=== PATIENT | female | born 1960 | race Caucasian/White ===

== ENCOUNTER 2017-09-07 19:03 | Emergency (ER) | payer MEDICARE ==
[~2017-09-07] VITALS: Ht 160 cm; Wt 54.0 kg
[2017-09-07] MEDS ORDERED: SODIUM CHLORIDE 0.9% 1000ML 1,000 ML IV STA (19:47)
--- NOTE | 2017-09-07 20:48 | Diagnostic Imaging Report ---
EXAMINATION: CHEST SINGLE (PORTABLE) INDICATION: Dizziness. Low blood pressure. COMPARISON: None FINDINGS: TUBES and LINES: None. Battery pack projected on the left hemithorax with lead extending into the left hemithorax, with distal portion not included. LUNGS: Lungs are well inflated. Lungs are clear. There is no evidence of pneumonia or pulmonary edema. PLEURA: No pleural effusion or pneumothorax. HEART AND MEDIASTINUM: The cardiomediastinal silhouette is unremarkable. BONES AND SOFT TISSUES: No acute osseous lesion. Soft tissues are unremarkable. UPPER ABDOMEN: No free air under the diaphragm. IMPRESSION: No acute thoracic abnormality. Signed by: Dr. Paco Munoz M.D. on 09/07/2017 8:44 PM
[2017-09-07 22:15] LABS: BASOPHILS % 0.6 % (0.0-1.0); EOSINOPHILS # (AUTO) 0.1 (0.0-0.4); EOSINOPHILS % 1.1 % (0.0-6.0); HEMATOCRIT 34.5 % (34.2-44.1); LYMPHOCYTES # (AUTO) 1.3 (1.0-3.2); LYMPHOCYTES % 25.1 % (18.0-39.1); MEAN CORPUSCULAR HEMOGLOBIN 30.2 pg (28-32); MEAN CORPUSCULAR HGB CONC 31.9 g/dL (31-35); MEAN CORPUSCULAR VOLUME 94.8 fL (81-99); MONOCYTES # (AUTO) 0.4 (0.2-0.8); MONOCYTES % 7.4 % (4.4-11.3); NEUTROPHILS # (AUTO) 3.4 (2.1-6.9); NEUTROPHILS % 65.6 % (38.7-80.0); PLATELET COUNT 301 x10e3/uL (140-360); RED BLOOD COUNT 3.64 x10e6/uL (3.6-5.1); RED CELL DISTRIBUTION WIDTH 13.2 % (11.7-14.4)
[2017-09-07 22:19] LABS: INR 1.03; PROTHROMBIN TIME 12.7 seconds (11.9-14.5)
[2017-09-07 22:21] LABS: PARTIAL THROMBOPLASTIN TIME 23.2 seconds (23.8-35.5)
[2017-09-07 22:27] LABS: ALANINE AMINOTRANSFERASE 10 IU/L (0-55); ALBUMIN/GLOBULIN RATIO 1.2 (0.8-2.0); ALKALINE PHOSPHATASE 92 IU/L (40-150); ANION GAP 12.5 mmol/L (8-16); BLOOD UREA NITROGEN 16 mg/dL (7-26); BUN/CREATININE RATIO 17 (6-25); CALCIUM 9.6 mg/dL (8.4-10.2); CARBON DIOXIDE 22 mmol/L (22-29); CHLORIDE 110 mmol/L (98-107); CREATINE KINASE 102 IU/L (29-168); CREATININE, SERUM 0.96 mg/dL (0.57-1.11); EST GLOMERULAR FILTRATION RATE 60 ML/MIN (60-); GLUCOSE 115 mg/dL (74-118); MAGNESIUM 1.7 MG/DL (1.3-2.1); POTASSIUM 3.5 mmol/L (3.5-5.1); SODIUM 141 mmol/L (136-145)
[2017-09-07 23:24] LABS: BILIRUBIN,URINE NEGATIVE (NEGATIVE); CLARITY,URINE CLEAR (CLEAR); COLOR,URINE YELLOW (YELLOW); KETONES,URINE NEGATIVE (NEGATIVE); LEUKOCYTE ESTERASE ,URINE 1+ (NEGATIVE); NITRITE,URINE NEGATIVE (NEGATIVE); PROTEIN,URINE DIPSTICK NEGATIVE (NEGATIVE); URINE UROBILINOGEN 0.2 mg/dL (0.2 - 1)
[2017-09-07 23:37] LABS: BACTERIA,URINE FEW /HPF; EPITHELIAL CELLS,URINE FEW /LPF; MUCUS,URINE MODERATE (RARE); RBC,URINE 0-5 /HPF (0-5)
[2017-09-08] MEDS ORDERED: CEFTRIAXONE SOD 1 GM VIAL IV ONE
[2017-09-08] MEDS ORDERED: SODIUM CHLORIDE 0.9% 1000ML 1,000 ML ONE
[2017-09-08 02:37] VITALS: BP 111/68
== END 2017-09-08 02:48 | disposition home or self-care (01) ==
LOC: ER 19:03
DX: R11.2 Nausea with vomiting, unspecified (principal); N39.0 Urinary tract infection, site not specified; N30.90 Cystitis, unspecified without hematuria
CPT/HCPCS: 36415; 71045; 80053; 81001; 82550; 82553; 83735; 84484; 85025; 85610; 85730; 99283; J0696; J7030

== ENCOUNTER 2018-11-09 09:18 | Emergency (ER) | payer MEDICARE ==
[~2018-11-09] VITALS: Ht 160 cm; Wt 54.0 kg
--- OUTSIDE RECORDS SUMMARY | 2018-11-09 09:21 | XMS REPORT | Continuity of Care Document ---
Author Author [facility] Address Unknown Phone Unavailable Care Team Providers Care Wreath Maker Name Role Phone Cardiola Unavailable Unavailable Problems No Data Provided for This Section Medications No Data Provided for This Section Allergies, Adverse Reactions, Alerts Substance Category Reaction Severity Reaction type Status Date Reported Comments Source Codeine Unknown Allergy to Substance Active 09/07/2017 [facility] Immunizations No Data Provided for This Section Results Order Name Results Value Reference Range Date Interpretation Comments Source Activated partial thromboplastin time (aPTT) in platelet poor plasma bycoagulation assay Activated partial thromboplastin time (aPTT) in platelet poor plasma bycoagulation assay 23.2 23.8 - 35.5 09/07/2017 [facility] Automated blood basophil count (count/volume) Automated blood basophil count (count/volume) 0.0 0.0 - 0.1 09/07/2017 [facility] Automated blood basophil count as percentage of total leukocytes Automated blood basophil count as percentage of total leukocytes 0.6 0.0 - 1.0 09/07/2017 [facility] Automated blood eosinophil count Automated blood eosinophil count 0.1 0.0 - 0.4 09/07/2017 [facility] Automated blood eosinophil count as percentage of total leukocytes Automated blood eosinophil count as percentage of total leukocytes 1.1 0.0 - 6.0 09/07/2017 [facility] Automated blood hematocrit (volume fraction) Automated blood hematocrit (volume fraction) 34.5 34.2 - 44.1 09/07/2017 [facility] Automated blood lymphocyte count as percentage ot total leukocytes Automated blood lymphocyte count as percentage ot total leukocytes 25.1 18.0 - 39.1 09/07/2017 [facility] Automated blood monocyte count as percentage of total leukocytes Automated blood monocyte count as percentage of total leukocytes 7.4 4.4 - 11.3 09/07/2017 [facility] Automated blood neutrophil count Automated blood neutrophil count 3.4 2.1 - 6.9 09/07/2017 [facility] Automated blood platelet count (count/volume) Automated blood platelet count (count/volume) 301 140 - 360 09/07/2017 [facility] Automated blood segmented neutrophil count as percentage of total leukocytes Automated blood segmented neutrophil count as percentage of total leukocytes 65.6 38.7 - 80.0 09/07/2017 [facility] Automated erythrocyte mean corpuscular hemoglobin (mass per erythrocyte) Automated erythrocyte mean corpuscular hemoglobin (mass per erythrocyte) 30.2 28 - 32 09/07/2017 [facility] Automated erythrocyte mean corpuscular hemoglobin concentration measurement (mass/volume) Automated erythrocyte mean corpuscular hemoglobin concentration measurement (mass/volume) 31.9 31 - 35 09/07/2017 [facility] Automated erythrocyte mean corpuscular volume Automated erythrocyte mean corpuscular volume 94.8 81 - 99 09/07/2017 [facility] Automated urine sediment leukocyte count by microscopy (number/high power field) Automated urine sediment leukocyte count by microscopy (number/high power field) <20 0 - 5 09/07/2017 [facility] Bacteria detection in urine sediment by light microscopy Bacteria detection in urine sediment by light microscopy FEW NONE 09/07/2017 [facility] Blood erythrocytes automated count (number/volume) Blood erythrocytes automated count (number/volume) 3.64 3.6 - 5.1 09/07/2017 [facility] Blood hemoglobin measurement (moles/volume) Blood hemoglobin measurement (moles/volume) 11.0 12.0 - 16.0 09/07/2017 [facility] Blood leukocytes automated count (number/volume) Blood leukocytes automated count (number/volume) 5.25 4.8 - 10.8 09/07/2017 [facility] Blood lymphocytes count (number/volume) Blood lymphocytes count (number/volume) 1.3 1.0 - 3.2 09/07/2017 [facility] Blood monocytes automated count (number/volume) Blood monocytes automated count (number/volume) 0.4 0.2 - 0.8 09/07/2017 [facility] Epithelial cells detection in urine sediment by light microscopy Epithelial cells detection in urine sediment by light microscopy FEW NONE 09/07/2017 [facility] Erythrocytes detection in urine sediment by light microscopy Erythrocytes detection in urine sediment by light microscopy <5 0 - 5 09/07/2017 [facility] Estimated glomerular filtration rate (GFR) determination Estimated glomerular filtration rate (GFR) determination 60 60 09/07/2017 [facility] Glucose measurement Glucose measurement 115 74 - 118 09/07/2017 [facility] INR in Platelet poor plasma by Coagulation assay INR in Platelet poor plasma by Coagulation assay 1.03 09/07/2017 [facility] Mucus detection in urine sediment by light microscopy Mucus detection in urine sediment by light microscopy MODERATE RARE 09/07/2017 [facility] Plasma globulin measurement (mass/volume) Plasma globulin measurement (mass/volume) 3.4 2.3 - 3.5 09/07/2017 [facility] Prothrombin time (PT) in platelet poor plasma by coagulation assay Prothrombin time (PT) in platelet poor plasma by coagulation assay 12.7 11.9 - 14.5 09/07/2017 [facility] Serum or plasma alanine aminotransferase measurement (enzymatic activity/volume) Serum or plasma alanine aminotransferase measurement (enzymatic activity/volume) 10 0 - 55 09/07/2017 [facility] Serum or plasma albumin measurement (mass/volume) Serum or plasma albumin measurement (mass/volume) 4.0 3.5 - 5.0 09/07/2017 [facility] Serum or plasma albumin/globulin mass ratio Serum or plasma albumin/globulin mass ratio 1.2 0.8 - 2.0 09/07/2017 [facility] Serum or plasma alkaline phosphatase measurement (enzymatic activity/volume) Serum or plasma alkaline phosphatase measurement (enzymatic activity/volume) 92 40 - 150 09/07/2017 [facility] Serum or plasma anion gap Serum or plasma anion gap 12.5 8 - 16 09/07/2017 [facility] Serum or plasma calcium measurement (mass/volume) Serum or plasma calcium measurement (mass/volume) 9.6 8.4 - 10.2 09/07/2017 [facility] Serum or plasma carbon dioxide, total measurement (moles/volume) Serum or plasma carbon dioxide, total measurement (moles/volume) 22 22 - 29 09/07/2017 [facility] Serum or plasma chloride measurement (moles/volume) Serum or plasma chloride measurement (moles/volume) 110 98 - 107 09/07/2017 [facility] Serum or plasma creatine kinase MB measurement (mass/volume) Serum or plasma creatine kinase MB measurement (mass/volume) 1.80 0 - 5.0 09/07/2017 [facility] Serum or plasma creatine kinase measurement (enzymatic activity/volume) Serum or plasma creatine kinase measurement (enzymatic activity/volume) 102 29 - 168 09/07/2017 [facility] Serum or plasma creatinine measurement (mass/volume) Serum or plasma creatinine measurement (mass/volume) 0.96 0.57 - 1.11 09/07/2017 [facility] Serum or plasma magnesium measurement (mass/volume) Serum or plasma magnesium measurement (mass/volume) 1.7 1.3 - 2.1 09/07/2017 [facility] Serum or plasma potassium measurement (moles/volume) Serum or plasma potassium measurement (moles/volume) 3.5 3.5 - 5.1 09/07/2017 [facility] Serum or plasma protein measurement (mass/volume) Serum or plasma protein measurement (mass/volume) 7.4 6.5 - 8.1 09/07/2017 [facility] Serum or plasma sodium measurement (moles/volume) Serum or plasma sodium measurement (moles/volume) 141 136 - 145 09/07/2017 [facility] Serum or plasma total bilirubin measurement (mass/volume) Serum or plasma total bilirubin measurement (mass/volume) 0.3 0.2 - 1.2 09/07/2017 [facility] Serum or plasma urea nitrogen measurement (mass/volume) Serum or plasma urea nitrogen measurement (mass/volume) 16 7 - 26 09/07/2017 [facility] Serum or plasma urea nitrogen/creatinine mass ratio Serum or plasma urea nitrogen/creatinine mass ratio 17 6 - 25 09/07/2017 [facility] Specific gravity of Urine by Test strip Specific gravity of Urine by Test strip 1.030 1.010 - 1.025 09/07/2017 [facility] Troponin I measurement by highly sensitive enzyme immunoassay Troponin I measurement by highly sensitive enzyme immunoassay <0.001 0 - 0.300 09/07/2017 [facility] Urine clarity Urine clarity CLEAR CLEAR 09/07/2017 [facility] Urine color determination Urine color determination YELLOW YELLOW 09/07/2017 [facility] Urine erythrocytes detection Urine erythrocytes detection NEGATIVE NEGATIVE 09/07/2017 [facility] Urine glucose detection Urine glucose detection NEGATIVE NEGATIVE 09/07/2017 [facility] Urine ketones detection by automated test strip Urine ketones detection by automated test strip NEGATIVE NEGATIVE 09/07/2017 [facility] Urine leukocyte esterase detection by dipstick Urine leukocyte esterase detection by dipstick 1+ NEGATIVE 09/07/2017 [facility] Urine nitrite detection Urine nitrite detection NEGATIVE NEGATIVE 09/07/2017 [facility] Urine pH measurement by automated test strip Urine pH measurement by automated test strip 6 5 - 7 09/07/2017 [facility] Urine protein measurement by test strip (mass/volume) Urine protein measurement by test strip (mass/volume) NEGATIVE NEGATIVE 09/07/2017 [facility] Urine total bilirubin measurement (mass/volume) Urine total bilirubin measurement (mass/volume) NEGATIVE NEGATIVE 09/07/2017 [facility] Urine urobilinogen measurement by test strip (mass/volume) Urine urobilinogen measurement by test strip (mass/volume) 0.2 0.2 - 1 09/07/2017 [facility] Red Cell Distribution Width 13.2 11.7 - 14.4 09/07/2017 [facility] IM GRANULOCYTES % 0.2 0.0 - 1.0 09/07/2017 [facility] Absolute Immature Granulocyte (auto 0.01 0 - 0.1 09/07/2017 [facility] Aspartate Amino Transf (AST/SGOT) 18 5 - 34 09/07/2017 [facility] Pathology Reports No Data Provided for This Section Diagnostic Reports No Data Provided for This Section Consultation Notes No Data Provided for This Section Discharge Summaries No Data Provided for This Section History and Physicals No Data Provided for This Section Vital Signs No Data Provided for This Section Encounters Location Location Details Encounter Type Encounter Number Reason For Visit Attending Provider ADM Date DC Date Status Source Departed Emergency Room [id number] ONE NAVA MD 09/07/2017 09/08/2017 [facility] Procedures No Data Provided for This Section Assessment and Plan No Data Provided for This Section Plan of Care Plan of Care Date Source Discharge Date 09/08/17 2:48am Disposition HOME, SELF-CARE Condition at Discharge Stable Prescriptions See Medication Section Referrals JOHN SO DO Address: [address] [place] [id number] 09/08/2017 [facility] Social History Social History Date Source Smoking Status Start Date Stop Date Never Smoker 09/08/2017 [facility] Family History No Data Provided for This Section Advance Directives Order Name Results Value Date Source Advance Directives Advance Directives Directive Response Recorded Date/Time Does the patient have an advance directive? No 09/07/17 8:56pm If yes, is advance directive on file with [facility]? No 09/07/17 8:56pm If not on file with [facility] will patient provide a copy? No 09/07/17 8:56pm Do you have a Directive to Physician? No 09/07/17 8:56pm Do you have a Medical Power of Ear Specialist? No 09/07/17 8:56pm Do you have an out of hospital Do Not Resuscitate Order? No 09/07/17 8:56pm Do you have any special needs we should be aware of? No 09/07/17 8:56pm Do you have a support person here with you today? Yes 09/07/17 8:56pm Did patient receive Notice of Privacy Practices? Yes 09/07/17 8:56pm Did patient receive patient rights and responsibilities? Yes 09/07/17 8:56pm 09/08/2017 [facility] Functional Status No Data Provided for This Section
--- OUTSIDE RECORDS SUMMARY | 2018-11-09 09:22 | XMS REPORT ---
[facility] Address Unknown Phone Unavailable Care Team Providers Care Jamb Cutter Name Role Phone Rashard PITT Unavailable Unavailable Payers Payer Name Policy Type Policy Number Effective Date Expiration Date Problems This patient has no known problems. Allergies, Adverse Reactions, Alerts Allergy Name Allergy Type Status Severity Reaction(s) Onset Date Inactive Date Treating Clinician Comments codeine DA Active U 2018-10-02 00:00:00 tramadol DA Active MO 2018-10-02 00:00:00 tramadol DA Active MO 2018-07-13 00:00:00 codeine DA Active U 2018-07-12 00:00:00 CODEINE DA Active U 2006-01-07 00:00:00 No Known Contrast Allergies DA Active U 2006-01-07 00:00:00 No Known Food Allergies DA Active U 2006-01-07 00:00:00 No Known Other Allergies DA Active U 2006-01-07 00:00:00 codeine DA Active U 2006-01-03 00:00:00 Medications This patient has no known medications. Results Test Description Test Time Test Comments Text Results Atomic Results Result Comments DUODENUM,BIOPSY 2018-10-08 13:02:00 RUN DATE: 10/08/18 [facility] PAGE 1 RUN TIME: 1302 Specimen Inquiry RUN USER: INTERFACE PATIENT: VIRGEN CACERES LOC: KRISTIAN U #: [id number] AGE/SX: 57/F ROOM: [facility] RE10/03/18REG DR: Toro John MD : 58 BED: A DIS: 10/05/18 STATUS: DIS IN TLOC: SPEC #: [id number] RECD: 10/05/18 STATUS: MADINA CHECO #: [id number] MARVIN: 10/04/18-[address] [facility] [address]: Brad Chino MD ENTERED: 10/05/18-1330 SP TYPE: BX DUODEN OTHR DR: Brad Chino MD, Milton E DO Qureshi, Salah Uddin MD Rasheed, Amir A MDORDERED: GROSS COPIES TO: Brad Chino MD [address] [place] [address] Ernesto Ashley DO [address] [place], [place] [id number] Tr Ching MD [address] [facility] [address] [place] [address] [place] [address] [facility] [address] [place] [address] PROCEDURES: GROSS (10/08/18-1116) TISSUES: 1. DUODENUM, NOS - BX-COLD 2. ANTRUM - BX COLD 3. 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 It consists of two pierson biopsy fragments measuring 0.3 cm each. The second specimen is received in formalin, labeled with the patient's name, identified as "antrum bx". It consists of two pierson biopsy fragments measuring 0.2 and 0.35 cm. An H E and a Giemsa stain will be prepared. The third specimen is received in formalin, labeled with the patient's name, identified as "esophagus bx". It consists of two white biopsy fragments measuring 0.25 and 0.3 cm. GROSS PERFORMED AT [facility] [address] [place] [address] [id number] (p)[phone] MICROSCOPIC Sections of the duodenum show mild extension of lamina propria by chronic inflammatory cells and focal Kierra's gland hyperplasia. No acute inflammation, microorganisms, granuloma, intraepithelial lymphocytosis, dysplasia or malignancy identified. Sections of antral mucosa shows mild expansion of lamina propria by chronic CONTINUED ON NEXT PAGE RUN DATE: 10/08/18 [facility] PAGE 3 RUN TIME: 1302 Specimen Inquiry RUN USER: INTERFACE SPEC #: [id number] PATIENT: VIRGEN CACERES #[id number] (Continued) MICROSCOPIC (Continued) inflammatory cells and very rare intraepithelial chronic inflammatory cells. Giemsa stain with appropriate control shows no diagnostic helicobacter. No intestinal metaplasia, dysplasia or malignancy is identified. Sections of the esop hagus shows squamous lined mucosa with intraepithelial chronic inflammatory cells and basal layer hyperplasia consistent with reflux esophagitis. In addition, there is a detached portion of gastric mucosa with mild foveolar hyperplasia and mild chronic inflammatory infiltrates. No microorganisms, intestinal metaplasia, dysplasia or malignancy is identified. All of the stains, including any controls performed, stain appropriately. MICROSCOPIC PERFORMED AT [facility] [address] [facility], [place] [address] [phone])[phone] [address] Diagnosis performed at: [facility] [address] [place] [address] Signed SIGNATURE ON FILE Deandra Ardon MD 10/08/18 1302 END OF REPORT AG CARCINOEMBRYONIC 2018-10-04 08:15:00 AG CARCINOEMBRYONIC (test code=CEA) 2.6 ng/mL 0.0-3.0 ALPHA FETOPROTEIN TUMOR [id number] 08:15:00* Test Item Value Reference Range Comments ALPHA FETOPROTEIN TUMOR MARKER (test code=AFPTM) 1.8 ng/mL 0.0-8.3 [facility] Electrochemiluminescence Immunoassay(ECLIA)Values obtained with different assay methods or kits cannotbe used interchangeably. Results cannot be interpreted asabsolute evidence of the presence or absence of malignantdisease.This test is not interpretable in females. CA [id number] 08:15:00* Test Item Value Reference Range Comments CA 125 (test nboc=SF479) Unit/mL CA [id number] 08:15:00* Test Item Value Reference Range Comments CA 19-9 (test code=CA19) Unit/mL AG [id number] 08:15:00* Test Item Value Reference Range Comments AG CARCINOEMBRYONIC (test code=CEA) 2.6 ng/mL 0.0-3.0 ALPHA FETOPROTEIN TUMOR [id number] 08:15:00* Test Item Value Reference Range Comments ALPHA FETOPROTEIN TUMOR MARKER (test code=AFPTM) 1.8 ng/mL 0.0-8.3 [facility] Electrochemiluminescence Immunoassay(ECLIA)Values obtained with different assay methods or kits cannotbe used interchangeably. Results cannot be interpreted asabsolute evidence of the presence or absence of malignantdisease.This test is not interpretable in females. CA [id number] 08:15:00* Test Item Value Reference Range Comments CA 125 (test ictq=KV767) Unit/mL CA 08:15:00* Test Item Value Reference Range Comments CA 19-9 (test code=CA19) 58 U/mL 0-35 [facility] Electrochemiluminescence Immunoassay(ECLIA)Values obtained with different assay methods or kits cannotbe used interchangeably. Results cannot be interpreted asabsolute evidence of the presence or absence of malignantdisease. AG [id number] 08:15:00* Test Item Value Reference Range Comments AG CARCINOEMBRYONIC (test code=CEA) 2.6 ng/mL 0.0-3.0 ALPHA FETOPROTEIN TUMOR [id number] 08:15:00* Test Item Value Reference Range Comments ALPHA FETOPROTEIN TUMOR MARKER (test code=AFPTM) 1.8 ng/mL 0.0-8.3 [facility] Electrochemiluminescence Immunoassay(ECLIA)Values obtained with different assay methods or kits cannotbe used interchangeably. Results cannot be interpreted asabsolute evidence of the presence or absence of malignantdisease.This test is not interpretable in females. CA [id number] 08:15:00* Test Item Value Reference Range Comments CA 125 (test slcv=BG185) 27.4 U/mL 0.0-38.1 [facility] Electrochemiluminescence Immunoassay(ECLIA)Values obtained with different assay methods or kits cannotbe used interchangeably. Results cannot be interpreted asabsolute evidence of the presence or absence of malignantdisease.Performed At: [facility] [place], [place] [address]Jprnv Mina Bansal MD Ph:[phone] CA 08:15:00* Test Item Value Reference Range Comments CA 19-9 (test code=CA19) 58 U/mL 0-35 [facility] Electrochemiluminescence Immunoassay(ECLIA)Values obtained with different assay methods or kits cannotbe used interchangeably. Results cannot be interpreted asabsolute evidence of the presence or absence of malignantdisease. AG [id number] 10:05:00* Test Item Value Reference Range Comments AG CARCINOEMBRYONIC (test code=CEA) 2.6 ng/mL 0.0-3.0 ALPHA FETOPROTEIN TUMOR [id number] 10:05:00* Test Item Value Reference Range Comments ALPHA FETOPROTEIN TUMOR MARKER (test code=AFPTM) ng/mL CA [id number] 10:05:00* Test Item Value Reference Range Comments CA 125 (test meol=RI139) Unit/mL CA 10:05:00* Test Item Value Reference Range Comments CA 19-9 (test code=CA19) Unit/mL BASIC METABOLIC [id number] 11:50:00* Test Item Value Reference Range Comments SODIUM (test code=NA) 140 mmol/L 136-145 POTASSIUM (test code=K) 3.4 mmol/L 3.5-5.1 CHLORIDE (test code=CL) 99.0 mmol/L 98-107 CARBON DIOXIDE (test code=CO2) 33.0 mmol/L 21-32 ANION GAP (test code=GAP) 11.4 10-20 GLUCOSE (test code=GLU) 91 mg/dL 74-106 BLOOD UREA NITROGEN (test code=BUN) 8 mg/dL 7-18 GLOMERULAR FILTRATION RATE (test code=GFR) > 60 mL/min >=60 Estimated GFR by using Modified MDRD formula.Chronic kidney disease is defined as either kidney damageor GFR <60 mL/min/1.73 m2 for >3 months. CREATININE (test code=CREAT) 0.60 mg/dL 0.55-1.02 Note change in reference range due to change in reagent. BUN/CREATININE RATIO (test code=BUN/CREA) 13.3 10-20 CALCIUM (test code=CA) 8.7 mg/dL 8.5-10.1 HEPATIC FUNCTION [id number] 11:50:00* Test Item Value Reference Range Comments TOTAL PROTEIN (test code=PROT) 7.3 gram/dL 6.4-8.2 ALBUMIN (test code=ALB) 3.2 g/dL 3.4-5.0 GLOBULIN (test code=GLOB) 4.1 gram/dL 2.7-4.2 ALBUMIN/GLOBULIN RATIO (test code=A/G) 0.8 0.75-1.50 BILIRUBIN TOTAL (test code=BILT) 0.40 mg/dL 0.0-1.0 BILIRUBIN DIRECT (test code=BILD) 0.17 mg/dL 0.0-0.20 SGOT/AST (test code=AST) 17 IUnit/L 15-37 SGPT/ALT (test code=ALT) 10 IUnit/L 12-78 ALKALINE PHOSPHATASE TOTAL (test code=ALKP) 123 IUnit/L 45-117 Note change in reference range due to change in reagent. [id number] 11:50:00* Test Item Value Reference Range Comments LIPASE (test code=LIP) 179 U/L 73.0-393.0 [id number] 11:50:00* Test Item Value Reference Range Comments TROPONIN-I (test code=TROPI) <0.015 ng/mL 0-0.045 [id number] 11:44:00* Test Item Value Reference Range Comments MAGNESIUM (test code=MAG) 1.8 mg/dL 1.8-2.4 BASIC METABOLIC [id number] 11:41:00* Test Item Value Reference Range Comments SODIUM (test code=NA) 140 mmol/L 136-145 POTASSIUM (test code=K) 3.4 mmol/L 3.5-5.1 CHLORIDE (test code=CL) 99.0 mmol/L 98-107 CARBON DIOXIDE (test code=CO2) mmol/L 21-32 ANION GAP (test code=GAP) 10-20 GLUCOSE (test code=GLU) mg/dL 74-106 BLOOD UREA NITROGEN (test code=BUN) mg/dL 7-18 GLOMERULAR FILTRATION RATE (test code=GFR) mL/min >=60 CREATININE (test code=CREAT) mg/dL 0.55-1.02 BUN/CREATININE RATIO (test code=BUN/CREA) 10-20 CALCIUM (test code=CA) mg/dL 8.5-10.1 HEPATIC FUNCTION [id number] 11:41:00* Test Item Value Reference Range Comments TOTAL PROTEIN (test code=PROT) gram/dL 6.4-8.2 ALBUMIN (test code=ALB) g/dL 3.4-5.0 GLOBULIN (test code=GLOB) gram/dL 2.7-4.2 ALBUMIN/GLOBULIN RATIO (test code=A/G) 0.75-1.50 BILIRUBIN TOTAL (test code=BILT) mg/dL 0.0-1.0 BILIRUBIN DIRECT (test code=BILD) mg/dL 0.0-0.20 SGOT/AST (test code=AST) IUnit/L 15-37 SGPT/ALT (test code=ALT) IUnit/L 12-78 ALKALINE PHOSPHATASE TOTAL (test code=ALKP) IUnit/L 45-117 [id number] 11:41:00* Test Item Value Reference Range Comments LIPASE (test code=LIP) U/L 73.0-393.0 [id number] 11:41:00* Test Item Value Reference Range Comments TROPONIN-I (test code=TROPI) ng/mL 0-0.045 CBC W/O [id number] 11:36:00* Test Item Value Reference Range Comments WHITE BLOOD CELL (test code=WBC) 4.7 K/mm3 4.5-12.5 RED BLOOD CELL (test code=RBC) 3.65 mill/mm3 3.7-5.2 HEMOGLOBIN (test code=HGB) 10.6 gram/dL 11.5-15.5 HEMATOCRIT (test code=HCT) 33.8 % 36.0-46.0 MEAN CELL VOLUME (test code=MCV) 92.6 fL 80-98 MEAN CELL HGB (test code=MCH) 29.0 picogram 27.0-33.0 MEAN CELL HGB CONCETRATION (test code=MCHC) 31.4 gram/dL 33.0-36.0 RED CELL DISTRIBUTION WIDTH (test code=RDW) 14.9 % 11.6-16.2 PLATELET COUNT (test code=PLT) 349 K/mm3 150-450 MEAN PLATELET VOLUME (test code=MPV) 9.1 fL 6.7-11.0 - XR CHEST 1 [id number] 11:17:00 FAX: Alondra Boyle [phone] [place]: [facility] [[email or web address] REG FAX: Ernesto Damico [phone] Name: VIRGEN CACERES [facility] : 1960 Age/S: 57/F [address] [place] [address] Unit #: [id number] Loc: [place] [address] Phys: Alondra Hanna MD Acct: [id number] Dis Date: Status: REG ER PHONE #: [phone] Exam Date: 10/02/2018 1106 FAX #: [phone] Reason: Abdominal Pain EXAMS: CPT CODE: [id number] XR CHEST 1 V [id number] HISTORY: Abdominal pain. COMPARISON: August 12, 2018. Left battery pack within the extending into the left neck. Shoulder prosthesis on the left. No acute infiltrates, effusion or congestion is noted. Hyperinflation. The cardiac and mediastinal silhouette are within normal limits. IMPRESSION: No acute infiltrates, effusion or congestion. at 1117 Reported and signed by: Jefry Barrett M.D. CC: Alondra Hanna MD; Ernesto Ashley Technologist: Elmira Khoury(R); Ashley ALEXANDRE(R) Trnscrd Date/Time/By: 10/02/2018 (1117) : By: [email or web address] Orig Print D/T: S: 10/02/2018 (1120) PAGE 1 Signed Report COMPREHENSIVE METABOLIC [id number] 08:02:00* Test Item Value Reference Range Comments SODIUM (test code=NA) 140 mmol/L 136-145 POTASSIUM (test code=K) 4.0 mmol/L 3.5-5.1 CHLORIDE (test code=CL) 104.0 mmol/L 98-107 CARBON DIOXIDE (test code=CO2) 30.0 mmol/L 21-32 ANION GAP (test code=GAP) 10.0 10-20 GLUCOSE (test code=GLU) 86 mg/dL 74-106 BLOOD UREA NITROGEN (test code=BUN) 9 mg/dL 7-18 GLOMERULAR FILTRATION RATE (test code=GFR) > 60 mL/min >=60 Estimated GFR by using Modified MDRD formula.Chronic kidney disease is defined as either kidney damageor GFR <60 mL/min/1.73 m2 for >3 months. CREATININE (test code=CREAT) 0.60 mg/dL 0.55-1.02 Note change in reference range due to change in reagent. BUN/CREATININE RATIO (test code=BUN/CREA) 15.0 10-20 TOTAL PROTEIN (test code=PROT) 6.6 gram/dL 6.4-8.2 ALBUMIN (test code=ALB) 2.8 g/dL 3.4-5.0 GLOBULIN (test code=GLOB) 3.8 gram/dL 2.7-4.2 ALBUMIN/GLOBULIN RATIO (test code=A/G) 0.7 0.75-1.50 CALCIUM (test code=CA) 9.0 mg/dL 8.5-10.1 BILIRUBIN TOTAL (test code=BILT) 0.50 mg/dL 0.0-1.0 SGOT/AST (test code=AST) 30 IUnit/L 15-37 SGPT/ALT (test code=ALT) 17 IUnit/L 12-78 ALKALINE PHOSPHATASE TOTAL (test code=ALKP) 90 IUnit/L 45-117 Note change in reference range due to change in reagent. COMPREHENSIVE METABOLIC [id number] 07:48:00* Test Item Value Reference Range Comments SODIUM (test code=NA) 140 mmol/L 136-145 POTASSIUM (test code=K) 4.0 mmol/L 3.5-5.1 CHLORIDE (test code=CL) 104.0 mmol/L 98-107 CARBON DIOXIDE (test code=CO2) mmol/L 21-32 ANION GAP (test code=GAP) 10-20 GLUCOSE (test code=GLU) mg/dL 74-106 BLOOD UREA NITROGEN (test code=BUN) mg/dL 7-18 GLOMERULAR FILTRATION RATE (test code=GFR) mL/min >=60 CREATININE (test code=CREAT) mg/dL 0.55-1.02 BUN/CREATININE RATIO (test code=BUN/CREA) 10-20 TOTAL PROTEIN (test code=PROT) gram/dL 6.4-8.2 ALBUMIN (test code=ALB) g/dL 3.4-5.0 GLOBULIN (test code=GLOB) gram/dL 2.7-4.2 ALBUMIN/GLOBULIN RATIO (test code=A/G) 0.75-1.50 CALCIUM (test code=CA) mg/dL 8.5-10.1 BILIRUBIN TOTAL (test code=BILT) mg/dL 0.0-1.0 SGOT/AST (test code=AST) IUnit/L 15-37 SGPT/ALT (test code=ALT) IUnit/L 12-78 ALKALINE PHOSPHATASE TOTAL (test code=ALKP) IUnit/L 45-117 [id number] 18:12:00* Test Item Value Reference Range Comments GLUBED (test code=GLUBED) 122 mg/dL 74-106 Performed by certified fine grade operator at [facility] [id number] 16:31:00* Test Item Value Reference Range Comments GLYCOSYLATED HEMOGLOBIN (HA1C) (test code=GLYHGB) 5.4 % HbA1 4.8-6.0 ESTIMATED AVERAGE GLUCOSE (test code=EAG) 108 MG/DL [id number] 13:19:00* Test Item Value Reference Range Comments MAGNESIUM (test code=MAG) 1.8 mg/dL 1.8-2.4 BASIC METABOLIC [id number] 07:11:00* Test Item Value Reference Range Comments SODIUM (test code=NA) 140 mmol/L 136-145 POTASSIUM (test code=K) 3.3 mmol/L 3.5-5.1 CHLORIDE (test code=CL) 103.0 mmol/L 98-107 CARBON DIOXIDE (test code=CO2) 32.0 mmol/L 21-32 ANION GAP (test code=GAP) 8.3 10-20 GLUCOSE (test code=GLU) 91 mg/dL 74-106 BLOOD UREA NITROGEN (test code=BUN) 5 mg/dL 7-18 GLOMERULAR FILTRATION RATE (test code=GFR) > 60 mL/min >=60 Estimated GFR by using Modified MDRD formula.Chronic kidney disease is defined as either kidney damageor GFR <60 mL/min/1.73 m2 for >3 months. CREATININE (test code=CREAT) 0.50 mg/dL 0.55-1.02 Note change in reference range due to change in reagent. BUN/CREATININE RATIO (test code=BUN/CREA) 10.0 10-20 CALCIUM (test code=CA) 8.8 mg/dL 8.5-10.1 BASIC METABOLIC [id number] 06:52:00* Test Item Value Reference Range Comments SODIUM (test code=NA) 140 mmol/L 136-145 POTASSIUM (test code=K) 3.3 mmol/L 3.5-5.1 CHLORIDE (test code=CL) 103.0 mmol/L 98-107 CARBON DIOXIDE (test code=CO2) mmol/L 21-32 ANION GAP (test code=GAP) 10-20 GLUCOSE (test code=GLU) mg/dL 74-106 BLOOD UREA NITROGEN (test code=BUN) mg/dL 7-18 GLOMERULAR FILTRATION RATE (test code=GFR) mL/min >=60 CREATININE (test code=CREAT) mg/dL 0.55-1.02 BUN/CREATININE RATIO (test code=BUN/CREA) 10-20 CALCIUM (test code=CA) mg/dL 8.5-10.1 BASIC METABOLIC [id number] 18:53:00* Test Item Value Reference Range Comments SODIUM (test code=NA) 137 mmol/L 136-145 POTASSIUM (test code=K) 3.1 mmol/L 3.5-5.1 CHLORIDE (test code=CL) 98.0 mmol/L 98-107 CARBON DIOXIDE (test code=CO2) 31.0 mmol/L 21-32 ANION GAP (test code=GAP) 11.1 10-20 GLUCOSE (test code=GLU) 102 mg/dL 74-106 BLOOD UREA NITROGEN (test code=BUN) 4 mg/dL 7-18 GLOMERULAR FILTRATION RATE (test code=GFR) > 60 mL/min >=60 Estimated GFR by using Modified MDRD formula.Chronic kidney disease is defined as either kidney damageor GFR <60 mL/min/1.73 m2 for >3 months. CREATININE (test code=CREAT) 0.50 mg/dL 0.55-1.02 Note change in reference range due to change in reagent. BUN/CREATININE RATIO (test code=BUN/CREA) 8.0 10-20 CALCIUM (test code=CA) 8.1 mg/dL 8.5-10.1 CBC W/MANUAL [id number] 18:03:00* Test Item Value Reference Range Comments WHITE BLOOD CELL (test code=WBC) 5.0 K/mm3 4.5-12.5 RED BLOOD CELL (test code=RBC) 3.76 mill/mm3 3.7-5.2 HEMOGLOBIN (test code=HGB) 10.4 gram/dL 11.5-15.5 HEMATOCRIT (test code=HCT) 33.5 % 36.0-46.0 MEAN CELL VOLUME (test code=MCV) 89.1 fL 80-98 MEAN CELL HGB (test code=MCH) 27.7 picogram 27.0-33.0 MEAN CELL HGB CONCETRATION (test code=MCHC) 31.0 gram/dL 33.0-36.0 RED CELL DISTRIBUTION WIDTH (test code=RDW) 14.0 % 11.6-16.2 RED CELL DISTRIBUTION WIDTH SD (test code=RDW-SD) 46.1 fL 37.0-51.0 PLATELET COUNT (test code=PLT) 275 K/mm3 150-450 MEAN PLATELET VOLUME (test code=MPV) 9.0 fL 6.7-11.0 IMMATURE GRANULOCYTE % (test code=IG%) 0.2 % 0.0-5.0 NUCLEATED RBC % (test code=NRBC%) 0.0 % 0-0 NEUTROPHIL # (test code=NT#) 1.93 K/mm3 1.8-7.7 IMMATURE GRANULOCYTE # (test code=IG#) 0.01 x10 3/uL 0-0.03 LYMPHOCYTE # (test code=LY#) 2.51 K/mm3 1.0-5.0 MONOCYTE # (test code=MO#) 0.42 K/mm3 0-0.8 EOSINOPHIL # (test code=EO#) 0.05 K/mm3 0.0-0.5 BASOPHIL # (test code=BA#) 0.03 K/mm3 0.0-0.2 NUCLEATED RBC # (test code=NRBC#) 0.00 K/mm3 0.0-0.1 MANUAL DIFF REQUIRED (test code=MDIFF) YES STAIN ACCEPTABILITY (test code=STN ACCEPTABLE) STAIN ACCEPTABLE TOTAL CELLS COUNTED (test code=TCC) 100 #CELLS SEGMENTED NEUTROPHILS (test code=SEG) 44 % 39-69 LYMPHOCYTE (test code=LYMPH) 49 % 25-55 MONOCYTE (test code=MON) 6 % 0-10 EOSINOPHIL (test code=EOS) 1 % 0.0-5.0 ANISOCYTOSIS (test code=ANISO) 1+ PLATELET ESTIMATE (test code=PLTEST) ADEQUATE PLATELET MORPHOLOGY (test code=PLTMORPH) SIZE VARIABLE COMPREHENSIVE METABOLIC [id number] 17:36:00* Test Item Value Reference Range Comments SODIUM (test code=NA) 132 mmol/L 136-145 POTASSIUM (test code=K) 2.7 mmol/L 3.5-5.1 Results called to [id number] by [facility] 08/12/18 1736Critical results verified and read back by Nurse? Y CHLORIDE (test code=CL) 97.0 mmol/L 98-107 CARBON DIOXIDE (test code=CO2) 27.0 mmol/L 21-32 ANION GAP (test code=GAP) 10.7 10-20 GLUCOSE (test code=GLU) 92 mg/dL 74-106 BLOOD UREA NITROGEN (test code=BUN) 2 mg/dL 7-18 GLOMERULAR FILTRATION RATE (test code=GFR) > 60 mL/min >=60 Estimated GFR by using Modified MDRD formula.Chronic kidney disease is defined as either kidney damageor GFR <60 mL/min/1.73 m2 for >3 months. CREATININE (test code=CREAT) 0.40 mg/dL 0.55-1.02 Note change in reference range due to change in reagent. BUN/CREATININE RATIO (test code=BUN/CREA) 5.0 10-20 TOTAL PROTEIN (test code=PROT) 6.4 gram/dL 6.4-8.2 ALBUMIN (test code=ALB) 2.4 g/dL 3.4-5.0 GLOBULIN (test code=GLOB) 4.0 gram/dL 2.7-4.2 ALBUMIN/GLOBULIN RATIO (test code=A/G) 0.6 0.75-1.50 CALCIUM (test code=CA) 7.7 mg/dL 8.5-10.1 BILIRUBIN TOTAL (test code=BILT) 0.60 mg/dL 0.0-1.0 SGOT/AST (test code=AST) 38 IUnit/L 15-37 SGPT/ALT (test code=ALT) 16 IUnit/L 12-78 ALKALINE PHOSPHATASE TOTAL (test code=ALKP) 90 IUnit/L 45-117 Note change in reference range due to change in reagent. LACTIC [id number] 17:28:00* Test Item Value Reference Range Comments LACTIC ACID (test code=LACT) 0.6 mmol/L 0.4-1.9 [id number] 17:13:00* Test Item Value Reference Range Comments GLUBED (test code=GLUBED) 95 mg/dL 74-106 Performed by certified fine grade operator at [facility] CBC W/MANUAL [id number] 16:59:00* Test Item Value Reference Range Comments WHITE BLOOD CELL (test code=WBC) 5.0 K/mm3 4.5-12.5 RED BLOOD CELL (test code=RBC) 3.76 mill/mm3 3.7-5.2 HEMOGLOBIN (test code=HGB) 10.4 gram/dL 11.5-15.5 HEMATOCRIT (test code=HCT) 33.5 % 36.0-46.0 MEAN CELL VOLUME (test code=MCV) 89.1 fL 80-98 MEAN CELL HGB (test code=MCH) 27.7 picogram 27.0-33.0 MEAN CELL HGB CONCETRATION (test code=MCHC) 31.0 gram/dL 33.0-36.0 RED CELL DISTRIBUTION WIDTH (test code=RDW) 14.0 % 11.6-16.2 RED CELL DISTRIBUTION WIDTH SD (test code=RDW-SD) 46.1 fL 37.0-51.0 PLATELET COUNT (test code=PLT) 275 K/mm3 150-450 MEAN PLATELET VOLUME (test code=MPV) 9.0 fL 6.7-11.0 IMMATURE GRANULOCYTE % (test code=IG%) 0.2 % 0.0-5.0 NUCLEATED RBC % (test code=NRBC%) 0.0 % 0-0 NEUTROPHIL # (test code=NT#) 1.93 K/mm3 1.8-7.7 IMMATURE GRANULOCYTE # (test code=IG#) 0.01 x10 3/uL 0-0.03 LYMPHOCYTE # (test code=LY#) 2.51 K/mm3 1.0-5.0 MONOCYTE # (test code=MO#) 0.42 K/mm3 0-0.8 EOSINOPHIL # (test code=EO#) 0.05 K/mm3 0.0-0.5 BASOPHIL # (test code=BA#) 0.03 K/mm3 0.0-0.2 NUCLEATED RBC # (test code=NRBC#) 0.00 K/mm3 0.0-0.1 MANUAL DIFF REQUIRED (test code=MDIFF) YES STAIN ACCEPTABILITY (test code=STN ACCEPTABLE) TOTAL CELLS COUNTED (test code=TCC) #CELLS SEGMENTED NEUTROPHILS (test code=SEG) % 39-69 LYMPHOCYTE (test code=LYMPH) % 25-55 MONOCYTE (test code=MON) % 0-10 EOSINOPHIL (test code=EOS) % 0.0-5.0 CABOT RINGS (test code=CAB) MORPHOLOGY COMMENT (test code=MOC) PLATELET ESTIMATE (test code=PLTEST) PLATELET MORPHOLOGY (test code=PLTMORPH) CBC W/MANUAL [id number] 16:59:00* Test Item Value Reference Range Comments WHITE BLOOD CELL (test code=WBC) 5.0 K/mm3 4.5-12.5 RED BLOOD CELL (test code=RBC) 3.76 mill/mm3 3.7-5.2 HEMOGLOBIN (test code=HGB) 10.4 gram/dL 11.5-15.5 HEMATOCRIT (test code=HCT) 33.5 % 36.0-46.0 MEAN CELL VOLUME (test code=MCV) 89.1 fL 80-98 MEAN CELL HGB (test code=MCH) 27.7 picogram 27.0-33.0 MEAN CELL HGB CONCETRATION (test code=MCHC) 31.0 gram/dL 33.0-36.0 RED CELL DISTRIBUTION WIDTH (test code=RDW) 14.0 % 11.6-16.2 RED CELL DISTRIBUTION WIDTH SD (test code=RDW-SD) 46.1 fL 37.0-51.0 PLATELET COUNT (test code=PLT) 275 K/mm3 150-450 MEAN PLATELET VOLUME (test code=MPV) 9.0 fL 6.7-11.0 IMMATURE GRANULOCYTE % (test code=IG%) 0.2 % 0.0-5.0 NUCLEATED RBC % (test code=NRBC%) 0.0 % 0-0 NEUTROPHIL # (test code=NT#) 1.93 K/mm3 1.8-7.7 IMMATURE GRANULOCYTE # (test code=IG#) 0.01 x10 3/uL 0-0.03 LYMPHOCYTE # (test code=LY#) 2.51 K/mm3 1.0-5.0 MONOCYTE # (test code=MO#) 0.42 K/mm3 0-0.8 EOSINOPHIL # (test code=EO#) 0.05 K/mm3 0.0-0.5 BASOPHIL # (test code=BA#) 0.03 K/mm3 0.0-0.2 NUCLEATED RBC # (test code=NRBC#) 0.00 K/mm3 0.0-0.1 MANUAL DIFF REQUIRED (test code=MDIFF) YES STAIN ACCEPTABILITY (test code=STN ACCEPTABLE) TOTAL CELLS COUNTED (test code=TCC) #CELLS SEGMENTED NEUTROPHILS (test code=SEG) % 39-69 LYMPHOCYTE (test code=LYMPH) % 25-55 MONOCYTE (test code=MON) % 0-10 EOSINOPHIL (test code=EOS) % 0.0-5.0 CABOT RINGS (test code=CAB) MORPHOLOGY COMMENT (test code=MOC) PLATELET ESTIMATE (test code=PLTEST) PLATELET MORPHOLOGY (test code=PLTMORPH) CBC W/MANUAL [id number] 16:59:00* Test Item Value Reference Range Comments WHITE BLOOD CELL (test code=WBC) 5.0 K/mm3 4.5-12.5 RED BLOOD CELL (test code=RBC) 3.76 mill/mm3 3.7-5.2 HEMOGLOBIN (test code=HGB) 10.4 gram/dL 11.5-15.5 HEMATOCRIT (test code=HCT) 33.5 % 36.0-46.0 MEAN CELL VOLUME (test code=MCV) 89.1 fL 80-98 MEAN CELL HGB (test code=MCH) 27.7 picogram 27.0-33.0 MEAN CELL HGB CONCETRATION (test code=MCHC) 31.0 gram/dL 33.0-36.0 RED CELL DISTRIBUTION WIDTH (test code=RDW) 14.0 % 11.6-16.2 RED CELL DISTRIBUTION WIDTH SD (test code=RDW-SD) 46.1 fL 37.0-51.0 PLATELET COUNT (test code=PLT) 275 K/mm3 150-450 MEAN PLATELET VOLUME (test code=MPV) 9.0 fL 6.7-11.0 IMMATURE GRANULOCYTE % (test code=IG%) 0.2 % 0.0-5.0 NUCLEATED RBC % (test code=NRBC%) 0.0 % 0-0 NEUTROPHIL # (test code=NT#) 1.93 K/mm3 1.8-7.7 IMMATURE GRANULOCYTE # (test code=IG#) 0.01 x10 3/uL 0-0.03 LYMPHOCYTE # (test code=LY#) 2.51 K/mm3 1.0-5.0 MONOCYTE # (test code=MO#) 0.42 K/mm3 0-0.8 EOSINOPHIL # (test code=EO#) 0.05 K/mm3 0.0-0.5 BASOPHIL # (test code=BA#) 0.03 K/mm3 0.0-0.2 NUCLEATED RBC # (test code=NRBC#) 0.00 K/mm3 0.0-0.1 MANUAL DIFF REQUIRED (test code=MDIFF) YES STAIN ACCEPTABILITY (test code=STN ACCEPTABLE) TOTAL CELLS COUNTED (test code=TCC) #CELLS SEGMENTED NEUTROPHILS (test code=SEG) % 39-69 LYMPHOCYTE (test code=LYMPH) % 25-55 MONOCYTE (test code=MON) % 0-10 EOSINOPHIL (test code=EOS) % 0.0-5.0 MORPHOLOGY COMMENT (test code=MOC) PLATELET ESTIMATE (test code=PLTEST) PLATELET MORPHOLOGY (test code=PLTMORPH) CBC W/MANUAL [id number] 16:59:00* Test Item Value Reference Range Comments WHITE BLOOD CELL (test code=WBC) 5.0 K/mm3 4.5-12.5 RED BLOOD CELL (test code=RBC) 3.76 mill/mm3 3.7-5.2 HEMOGLOBIN (test code=HGB) 10.4 gram/dL 11.5-15.5 HEMATOCRIT (test code=HCT) 33.5 % 36.0-46.0 MEAN CELL VOLUME (test code=MCV) 89.1 fL 80-98 MEAN CELL HGB (test code=MCH) 27.7 picogram 27.0-33.0 MEAN CELL HGB CONCETRATION (test code=MCHC) 31.0 gram/dL 33.0-36.0 RED CELL DISTRIBUTION WIDTH (test code=RDW) 14.0 % 11.6-16.2 RED CELL DISTRIBUTION WIDTH SD (test code=RDW-SD) 46.1 fL 37.0-51.0 PLATELET COUNT (test code=PLT) 275 K/mm3 150-450 MEAN PLATELET VOLUME (test code=MPV) 9.0 fL 6.7-11.0 IMMATURE GRANULOCYTE % (test code=IG%) 0.2 % 0.0-5.0 NUCLEATED RBC % (test code=NRBC%) 0.0 % 0-0 NEUTROPHIL # (test code=NT#) 1.93 K/mm3 1.8-7.7 IMMATURE GRANULOCYTE # (test code=IG#) 0.01 x10 3/uL 0-0.03 LYMPHOCYTE # (test code=LY#) 2.51 K/mm3 1.0-5.0 MONOCYTE # (test code=MO#) 0.42 K/mm3 0-0.8 EOSINOPHIL # (test code=EO#) 0.05 K/mm3 0.0-0.5 BASOPHIL # (test code=BA#) 0.03 K/mm3 0.0-0.2 NUCLEATED RBC # (test code=NRBC#) 0.00 K/mm3 0.0-0.1 MANUAL DIFF REQUIRED (test code=MDIFF) YES STAIN ACCEPTABILITY (test code=STN ACCEPTABLE) TOTAL CELLS COUNTED (test code=TCC) #CELLS SEGMENTED NEUTROPHILS (test code=SEG) % 39-69 LYMPHOCYTE (test code=LYMPH) % 25-55 MONOCYTE (test code=MON) % 0-10 MORPHOLOGY COMMENT (test code=MOC) PLATELET ESTIMATE (test code=PLTEST) PLATELET MORPHOLOGY (test code=PLTMORPH) CBC W/MANUAL [id number] 16:59:00* Test Item Value Reference Range Comments WHITE BLOOD CELL (test code=WBC) 5.0 K/mm3 4.5-12.5 RED BLOOD CELL (test code=RBC) 3.76 mill/mm3 3.7-5.2 HEMOGLOBIN (test code=HGB) 10.4 gram/dL 11.5-15.5 HEMATOCRIT (test code=HCT) 33.5 % 36.0-46.0 MEAN CELL VOLUME (test code=MCV) 89.1 fL 80-98 MEAN CELL HGB (test code=MCH) 27.7 picogram 27.0-33.0 MEAN CELL HGB CONCETRATION (test code=MCHC) 31.0 gram/dL 33.0-36.0 RED CELL DISTRIBUTION WIDTH (test code=RDW) 14.0 % 11.6-16.2 RED CELL DISTRIBUTION WIDTH SD (test code=RDW-SD) 46.1 fL 37.0-51.0 PLATELET COUNT (test code=PLT) 275 K/mm3 150-450 MEAN PLATELET VOLUME (test code=MPV) 9.0 fL 6.7-11.0 IMMATURE GRANULOCYTE % (test code=IG%) 0.2 % 0.0-5.0 NUCLEATED RBC % (test code=NRBC%) 0.0 % 0-0 NEUTROPHIL # (test code=NT#) 1.93 K/mm3 1.8-7.7 IMMATURE GRANULOCYTE # (test code=IG#) 0.01 x10 3/uL 0-0.03 LYMPHOCYTE # (test code=LY#) 2.51 K/mm3 1.0-5.0 MONOCYTE # (test code=MO#) 0.42 K/mm3 0-0.8 EOSINOPHIL # (test code=EO#) 0.05 K/mm3 0.0-0.5 BASOPHIL # (test code=BA#) 0.03 K/mm3 0.0-0.2 NUCLEATED RBC # (test code=NRBC#) 0.00 K/mm3 0.0-0.1 MANUAL DIFF REQUIRED (test code=MDIFF) YES STAIN ACCEPTABILITY (test code=STN ACCEPTABLE) TOTAL CELLS COUNTED (test code=TCC) #CELLS SEGMENTED NEUTROPHILS (test code=SEG) % 39-69 LYMPHOCYTE (test code=LYMPH) % 25-55 MONOCYTE (test code=MON) % 0-10 EOSINOPHIL (test code=EOS) % 0.0-5.0 CABOT RINGS (test code=CAB) MORPHOLOGY COMMENT (test code=MOC) PLATELET ESTIMATE (test code=PLTEST) PLATELET MORPHOLOGY (test code=PLTMORPH) - XR CHEST 1 [id number] 16:22:00 FAX: Diony Traore MD [phone] [place]: St: ADM FAX: Mayra Wang FAX: Ernesto Damico [phone] Name: VIRGEN CACERES [facility] : 1960 Age/S: 57/F [address] [facility] #: [id number] Loc: V.3028 [place] [address] Phys: Mayra Wang LINING CLOSER Acct: [id number] Dis Date: Status: ADM IN [facility] #: [phone] Exam Date: 08/12/2018 1610 FAX #: [phone] Reason: SUSPECTED ASPIRATION EXAMS: CPT CODE: [id number] XR CHEST 1 V 71910 EXAM: Chest x- ray, one view; INFORMATION: Suspected aspiration; IMPRESSION: 1. No evidence of pulmonary infiltrates or other acute card iothoracic abnormalities. 2. No change compared with a recent s tudy from August 07, 2018. at 1622 Reported and signed by: Ze Ugarte M.D. CC: Diony Traore MD; Mayra Wang LINING CLOSER; Ernesto Ashley Technol ogist: Jhon Isaac RT(R); Penny Murray Trnalrd Date/Time/ By: 08/12/2018 (224) : By: MikeGRW Orig Print D/T: S: 08/12/2018 (9 250) PAGE 1 Signed Report - XR UGI W/AIR W/SM [id number] 15:20:00 FAX: Diony Traore MD [phone] [place]: St: ADM FAX: Ernesto Damico [phone] FAX: Francine Burkett [phone] --------- Name: VIRGEN CACERES [facility] : 1960 Age/S: 57/F [address] [facility] it #: [id number] Loc: V.3028 [place] [address] Phys: Francine Burkett Acct: [id number] Dis Date: Status: ADM IN ONE #: [phone] Exam Date: 08/11/2018 1445 FAX #: [phone] Reason: INTRACTABLE NAUSEA/VOMITING EXAMS: CPT CODE: [id number] XR UGI W/AIR W/SM INTEST 80402 EXAM: Upper GI double contrast study and small bowel follow-through study; INFORMATION: Abdominal pain; intractable nausea and vomiting; FIN DINGS: The double contrast study of the upper GI tract shows unimpaired passage of contrast material through the esophagus, stomach and duoden um. These organs shows smooth uterus. There is gastroesophageal reflux and there is an old swelling of the esophagus. Gastric folds and duodenal fol ds are normal. Jejunal and ileal loops of normal caliber and show normal f old pattern. Colon is opacified within one hour of the study. IMPRESSION: 1. Gastroesophageal reflux and mucosal swelling of the e sophagus which suggests esophagitis. No evidence of ulcerations. 2. Stomach, duodenum and small bowel are unremarkable. Fluoro scopy Time: 108 sec CAK : 29.451 mGy Electronicall y Signed by Ashish Ugarte on 08/11/2018 at 15 20 Reported and signed by: Ze Ugarte M.D. CC: Diony Traore MD; Ernesto Ashley; Modesto Burkett Technologist: Jhon ALEXANDRE(R) Trnscrd Maximus e/Time/By: 08/11/2018 (1520) : By: MikeGRW Orig Print D/T: S: 2018 (7297) PAGE 1 Signed Report LACTIC DEHYDROGENASE(LDH)2018-08-11 11:09:00* Test Item Value Reference Range Comments LACTIC DEHYDROGENASE(LDH) (test code=LDH) 251 IUnit/L 84-246 FE W/TOTAL IRON BINDING CAP.2018-08-11 11:09:00* Test Item Value Reference Range Comments SERUM IRON (test code=IRON) 43 ug/dL 50-175 TOTAL IRON BINDING CAPACITY (test code=TIBC) 185 mcg/dL 250-450 IRON SATURATION (test code=FESAT) 23.24 % 13-45 VITAMIN [id number] 11:09:00* Test Item Value Reference Range Comments VITAMIN B12 (test code=VITB12) 898 pg/mL 193-986 FOLIC [id number] 11:09:00* Test Item Value Reference Range Comments FOLIC ACID (test code=FOL) 15.2 ng/mL 3.10-17.50 AG [id number] 11:09:00* Test Item Value Reference Range Comments AG CARCINOEMBRYONIC (test code=CEA) 2.3 ng/mL 0.0-3.0 CA [id number] 11:09:00* Test Item Value Reference Range Comments CA 125 (test vfuq=NQ057) 56.3 U/mL 0.0-38.1 [facility] Electrochemiluminescence Immunoassay(ECLIA)Values obtained with different assay methods or kits cannotbe used interchangeably. Results cannot be interpreted asabsolute evidence of the presence or absence of malignantdisease.Performed At: [facility] [address] [place], [place] [id number] Mina Bansal MD Ph:[phone] CA 11:09:00* Test Item Value Reference Range Comments CA 19-9 (test code=CA19) 53 U/mL 0-35 [facility] Electrochemiluminescence Immunoassay(ECLIA)Values obtained with different assay methods or kits cannotbe used interchangeably. Results cannot be interpreted asabsolute evidence of the presence or absence of malignantdisease. KAPPA LAMBDA [id number] 11:09:00* Test Item Value Reference Range Comments KAPPA CHAINS (FLOW) (test code=KAPPA) 26.0 mg/L 3.3-19.4 LAMBDA CHAINS (FLOW) (test code=LAMBDA) 31.2 mg/L 5.7-26.3 KAPPA/LAMBDA RATIO (test code=HUSEYIN/MAYORGA) 0.83 0.26-1.65 Performed At: [facility] [address] [facility] [address] [place], [place] [id number] CN MD Ph:[phone] [id number] 11:09:00* Test Item Value Reference Range Comments FERRITIN (test code=RIANA) 955 ng/mL 8-388 LACTIC DEHYDROGENASE(LDH)2018-08-10 08:14:00* Test Item Value Reference Range Comments LACTIC DEHYDROGENASE(LDH) (test code=LDH) 251 IUnit/L 84-246 FE W/TOTAL IRON BINDING CAP.2018-08-10 08:14:00* Test Item Value Reference Range Comments SERUM IRON (test code=IRON) 43 ug/dL 50-175 TOTAL IRON BINDING CAPACITY (test code=TIBC) 185 mcg/dL 250-450 IRON SATURATION (test code=FESAT) 23.24 % 13-45 VITAMIN [id number] 08:14:00* Test Item Value Reference Range Comments VITAMIN B12 (test code=VITB12) 898 pg/mL 193-986 FOLIC [id number] 08:14:00* Test Item Value Reference Range Comments FOLIC ACID (test code=FOL) 15.2 ng/mL 3.10-17.50 AG [id number] 08:14:00* Test Item Value Reference Range Comments AG CARCINOEMBRYONIC (test code=CEA) 2.3 ng/mL 0.0-3.0 CA [id number] 08:14:00* Test Item Value Reference Range Comments CA 125 (test uyxu=MB770) Unit/mL CA [id number] 08:14:00* Test Item Value Reference Range Comments CA 19-9 (test code=CA19) 53 U/mL 0-35 [facility] Electrochemiluminescence Immunoassay(ECLIA)Values obtained with different assay methods or kits cannotbe used interchangeably. Results cannot be interpreted asabsolute evidence of the presence or absence of malignantdisease. KAPPA LAMBDA [id number] 08:14:00* Test Item Value Reference Range Comments KAPPA CHAINS (FLOW) (test code=KAPPA) LAMBDA CHAINS (FLOW) (test code=LAMBDA) KAPPA/LAMBDA RATIO (test code=HUSEYIN/MAYORGA) RATIO [id number] 08:14:00* Test Item Value Reference Range Comments FERRITIN (test code=RIANA) 955 ng/mL 8-388 LACTIC DEHYDROGENASE(LDH)2018-08-10 08:14:00* Test Item Value Reference Range Comments LACTIC DEHYDROGENASE(LDH) (test code=LDH) 251 IUnit/L 84-246 FE W/TOTAL IRON BINDING CAP.2018-08-10 08:14:00* Test Item Value Reference Range Comments SERUM IRON (test code=IRON) 43 ug/dL 50-175 TOTAL IRON BINDING CAPACITY (test code=TIBC) 185 mcg/dL 250-450 IRON SATURATION (test code=FESAT) 23.24 % 13-45 VITAMIN [id number] 08:14:00* Test Item Value Reference Range Comments VITAMIN B12 (test code=VITB12) 898 pg/mL 193-986 FOLIC [id number] 08:14:00* Test Item Value Reference Range Comments FOLIC ACID (test code=FOL) 15.2 ng/mL 3.10-17.50 AG [id number] 08:14:00* Test Item Value Reference Range Comments AG CARCINOEMBRYONIC (test code=CEA) 2.3 ng/mL 0.0-3.0 CA [id number] 08:14:00* Test Item Value Reference Range Comments CA 125 (test lzfj=SO459) 56.3 U/mL 0.0-38.1 [facility] Electrochemiluminescence Immunoassay(ECLIA)Values obtained with different assay methods or kits cannotbe used interchangeably. Results cannot be interpreted asabsolute evidence of the presence or absence of malignantdisease.Performed At: [facility] [address] [place], [place] [address]Daqlf Mina Bansal MD Ph:[phone] CA [id number] 08:14:00* Test Item Value Reference Range Comments CA 19-9 (test code=CA19) 53 U/mL 0-35 [facility] Electrochemiluminescence Immunoassay(ECLIA)Values obtained with different assay methods or kits cannotbe used interchangeably. Results cannot be interpreted asabsolute evidence of the presence or absence of malignantdisease. KAPPA LAMBDA [id number] 08:14:00* Test Item Value Reference Range Comments KAPPA CHAINS (FLOW) (test code=KAPPA) LAMBDA CHAINS (FLOW) (test code=LAMBDA) KAPPA/LAMBDA RATIO (test code=HUSEYIN/MAYORGA) RATIO [id number] 08:14:00* Test Item Value Reference Range Comments FERRITIN (test code=RIANA) 955 ng/mL 8-388 LACTIC DEHYDROGENASE(LDH)2018-08-08 21:50:00* Test Item Value Reference Range Comments LACTIC DEHYDROGENASE(LDH) (test code=LDH) 251 IUnit/L 84-246 FE W/TOTAL IRON BINDING CAP.2018-08-08 21:50:00* Test Item Value Reference Range Comments SERUM IRON (test code=IRON) 43 ug/dL 50-175 TOTAL IRON BINDING CAPACITY (test code=TIBC) 185 mcg/dL 250-450 IRON SATURATION (test code=FESAT) 23.24 % 13-45 VITAMIN [id number] 21:50:00* Test Item Value Reference Range Comments VITAMIN B12 (test code=VITB12) 898 pg/mL 193-986 FOLIC [id number] 21:50:00* Test Item Value Reference Range Comments FOLIC ACID (test code=FOL) 15.2 ng/mL 3.10-17.50 AG [id number] 21:50:00* Test Item Value Reference Range Comments AG CARCINOEMBRYONIC (test code=CEA) 2.3 ng/mL 0.0-3.0 CA [id number] 21:50:00* Test Item Value Reference Range Comments CA 125 (test xkkm=FA770) Unit/mL CA [id number] 21:50:00* Test Item Value Reference Range Comments CA 19-9 (test code=CA19) Unit/mL KAPPA LAMBDA [id number] 21:50:00* Test Item Value Reference Range Comments KAPPA CHAINS (FLOW) (test code=KAPPA) LAMBDA CHAINS (FLOW) (test code=LAMBDA) KAPPA/LAMBDA RATIO (test code=HUSEYIN/MAYORGA) RATIO [id number] 21:50:00* Test Item Value Reference Range Comments FERRITIN (test code=RIANA) 955 ng/mL 8-388 - NM GASTRIC [id number] 14:10:00 FAX: Diony Traore MD [phone] [place]: B St: ADM FAX: Brad Angela [phone] FAX: Ernesto Damico [phone] [facility] 1960 Age[facility]S: 57/F Sharon Tavarez Unit #: [id number] Loc: V.3028 [place] [address] Phys: Brad Chino MD Acct: [id number] Dis Date: Status: ADM IN ONE #: [phone] Exam Date: 08/08/2018 1353 FAX #: [phone] Reason: NV EXAMS: CPT CODE: [id number] NM GASTRIC EMPTYING 74403 HISTORY: Nausea and vomiting. COMPARISON: August 06, 2018. Gastric emptying study: 1 mCi of technetium 99m sulfur colloid in oatmeal. Sequent ial images obtained. T1/2 is normal at 47 minutes. The normal shou ld be less than 90 minutes. IMPRESSION: Normal T1/2 of 47 minutes would not suggest gastric outlet obstruction o r gastroparesis. Electronically Signed by Ashish Barrett on 08/08 at 1410 Reported and signed by: Jefry Barrett M.D. CC: Diony Traore MD; Brad Chino MD; Ernesto Ashley Technologist: WEN DRAKE James Trnscrd Date/Time/By: 08/08/2018 (6012) : By: [email or web address] Orig Print D/T: S: (6525) PAGE 1 Signed Rep ort AG [id number] 13:26:00* Test Item Value Reference Range Comments AG CARCINOEMBRYONIC (test code=CEA) 2.1 ng/mL 0.0-3.0 BASIC METABOLIC [id number] 08:39:00* Test Item Value Reference Range Comments SODIUM (test code=NA) 138 mmol/L 136-145 POTASSIUM (test code=K) 3.4 mmol/L 3.5-5.1 CHLORIDE (test code=CL) 100.0 mmol/L 98-107 CARBON DIOXIDE (test code=CO2) 28.0 mmol/L 21-32 ANION GAP (test code=GAP) 13.4 10-20 GLUCOSE (test code=GLU) 75 mg/dL 74-106 BLOOD UREA NITROGEN (test code=BUN) 6 mg/dL 7-18 GLOMERULAR FILTRATION RATE (test code=GFR) > 60 mL/min >=60 Estimated GFR by using Modified MDRD formula.Chronic kidney disease is defined as either kidney damageor GFR <60 mL/min/1.73 m2 for >3 months. CREATININE (test code=CREAT) 0.50 mg/dL 0.55-1.02 Note change in reference range due to change in reagent. BUN/CREATININE RATIO (test code=BUN/CREA) 12.0 10-20 CALCIUM (test code=CA) 8.1 mg/dL 8.5-10.1 BASIC METABOLIC [id number] 08:30:00* Test Item Value Reference Range Comments SODIUM (test code=NA) 138 mmol/L 136-145 POTASSIUM (test code=K) 3.4 mmol/L 3.5-5.1 CHLORIDE (test code=CL) 100.0 mmol/L 98-107 CARBON DIOXIDE (test code=CO2) mmol/L 21-32 ANION GAP (test code=GAP) 10-20 GLUCOSE (test code=GLU) mg/dL 74-106 BLOOD UREA NITROGEN (test code=BUN) mg/dL 7-18 GLOMERULAR FILTRATION RATE (test code=GFR) mL/min >=60 CREATININE (test code=CREAT) mg/dL 0.55-1.02 BUN/CREATININE RATIO (test code=BUN/CREA) 10-20 CALCIUM (test code=CA) mg/dL 8.5-10.1 THYROID STIMULATING [id number] 21:58:00* Test Item Value Reference Range Comments THYROID STIMULATING HORMONE (test code=TSH) 0.864 uIU/mL 0.36-3.74 TSH REFERENCE RANGES: EUTHYROID: 0.35 - 4.3 mIU/mL HYPO : > 5.5 mIU/mL HYPER : < 0.35 mIU/mL LACTIC [id number] 20:06:00* Test Item Value Reference Range Comments LACTIC ACID (test code=LACT) 0.8 mmol/L 0.4-1.9 - CT ABD PELVIS [id number] 19:17:00 Name: VIRGEN CACERES [facility] : 1960 Age/S: 57 / F Sharon Lee [facility] Unit #: [id number] Loc: [place] [address] Phys: Sonam Shea MD Acct: [id number] Dis Date: Status: REG ER PHONE #: [phone] Exam Date: 08/06/2018 1900 FAX #: [phone] Reason: pain, vomiting EXAMS: CPT CODE: [id number] CT ABD PELVIS W/CONT 13590 REASON FOR EXAM: pain, vomiting EXAM ORDER DATE: 08/06/2018 4:36 PM Ordering Ashish: Sonam Shea MD PROCEDURE: - CT ABD PELVIS W/CONT COMPARISON: FINDINGS: CT images of the abdomen and pelvis were obtained with IV and without oral contrast at 5mm. Dose modulation, iterative reconstruction, and/or weight based adjustment of the MA/KV was utilized to reduce the radiation dose to as low as reasonably achievable. Intravenous contrast: 100cc of Omnipaque 370. The liver, spleen, pancreas are grossly within normal limits. The patient is status post cholecystectomy. The kidneys are within normal limits. The urinary bladder is unremarkable. The colon, small bowel, and stomach are within normal limits without evidence of obstruction. The appendix was not seen. Surgical clips noted in the right lower quadrant. Diffuse atherosclerotic disease of the abdominal aorta No evidence of free air or free fluid. 1.5 cm enhancing lesion in the uterine fundus suggestive of fibroid IMPRESSION: No acute findings in the abdomen at 1917 Reported and signed by: Timothy Solano M.D. CC: Ernesto Ashley; Sonam Shea MD Technologist:Vahid Schulte RT(R); RAFFI Molina CTDI: DLP: Trnscb Date/Time: 2018 (1916) [email or web address] Orig Print D/T: S: 08/06/2018 (1919 ) CTDI: DLP: PAGE 1 Signed Report BASIC METABOLIC [id number] 17:56:00* Test Item Value Reference Range Comments SODIUM (test code=NA) 136 mmol/L 136-145 POTASSIUM (test code=K) 3.7 mmol/L 3.5-5.1 CHLORIDE (test code=CL) 96.0 mmol/L 98-107 CARBON DIOXIDE (test code=CO2) 32.0 mmol/L 21-32 ANION GAP (test code=GAP) 11.7 10-20 GLUCOSE (test code=GLU) 113 mg/dL 74-106 BLOOD UREA NITROGEN (test code=BUN) 13 mg/dL 7-18 GLOMERULAR FILTRATION RATE (test code=GFR) > 60 mL/min >=60 Estimated GFR by using Modified MDRD formula.Chronic kidney disease is defined as either kidney damageor GFR <60 mL/min/1.73 m2 for >3 months. CREATININE (test code=CREAT) 0.70 mg/dL 0.55-1.02 Note change in reference range due to change in reagent. BUN/CREATININE RATIO (test code=BUN/CREA) 18.6 10-20 CALCIUM (test code=CA) 8.4 mg/dL 8.5-10.1 HEPATIC FUNCTION [id number] 17:56:00* Test Item Value Reference Range Comments TOTAL PROTEIN (test code=PROT) 7.2 gram/dL 6.4-8.2 ALBUMIN (test code=ALB) 3.0 g/dL 3.4-5.0 GLOBULIN (test code=GLOB) 4.2 gram/dL 2.7-4.2 ALBUMIN/GLOBULIN RATIO (test code=A/G) 0.7 0.75-1.50 BILIRUBIN TOTAL (test code=BILT) 0.70 mg/dL 0.0-1.0 BILIRUBIN DIRECT (test code=BILD) 0.36 mg/dL 0.0-0.20 SGOT/AST (test code=AST) 34 IUnit/L 15-37 SGPT/ALT (test code=ALT) 15 IUnit/L 12-78 ALKALINE PHOSPHATASE TOTAL (test code=ALKP) 132 IUnit/L 45-117 Note change in reference range due to change in reagent. [id number] 17:56:00* Test Item Value Reference Range Comments LIPASE (test code=LIP) 166 U/L 73.0-393.0 [id number] 17:56:00* Test Item Value Reference Range Comments TROPONIN-I (test code=TROPI) <0.015 ng/mL 0-0.045 PROTHROMBIN [id number] 17:51:00* Test Item Value Reference Range Comments PROTHROMBIN TIME PATIENT (test code=PTP) 12.1 seconds 9.0-14.0 INTERNATIONAL NORMAL RATIO (test code=INR) 1.0 0.8-1.2 The therapeutic range for oral anticoagulant therapy formost indications is an international normalized ratio (INR)of between 2.0 and 3.0. The recommended therapeutic INRrange for various clinical situations is listed below: Clinical Situation INR range Pulmonary e mbolism treatment (2.0-3.0)Venous thrombosis treatmentVenous thrombosis prophylaxis (high risk surgery)Prevention of systemic embolism from: Acute myocardial infarction Valvular heart disease Atrial fibrillation Mechanical prosthetic heart valves (2.5-3.5) IS PATIENT ON ANTICOAGULANTS? NTHROMBOPLASTIN TIME [id number] 17:51:00* Test Item Value Reference Range Comments THROMBOPLASTIN TIME PARTIAL (test code=PTT) 25.6 seconds 25.0-36.5 IS PATIENT ON ANTICOAGULANTS? NBASIC METABOLIC [id number] 17:46:00* Test Item Value Reference Range Comments SODIUM (test code=NA) 136 mmol/L 136-145 POTASSIUM (test code=K) 3.7 mmol/L 3.5-5.1 CHLORIDE (test code=CL) 96.0 mmol/L 98-107 CARBON DIOXIDE (test code=CO2) mmol/L 21-32 ANION GAP (test code=GAP) 10-20 GLUCOSE (test code=GLU) mg/dL 74-106 BLOOD UREA NITROGEN (test code=BUN) mg/dL 7-18 GLOMERULAR FILTRATION RATE (test code=GFR) mL/min >=60 CREATININE (test code=CREAT) mg/dL 0.55-1.02 BUN/CREATININE RATIO (test code=BUN/CREA) 10-20 CALCIUM (test code=CA) mg/dL 8.5-10.1 HEPATIC FUNCTION [id number] 17:46:00* Test Item Value Reference Range Comments TOTAL PROTEIN (test code=PROT) gram/dL 6.4-8.2 ALBUMIN (test code=ALB) g/dL 3.4-5.0 GLOBULIN (test code=GLOB) gram/dL 2.7-4.2 ALBUMIN/GLOBULIN RATIO (test code=A/G) 0.75-1.50 BILIRUBIN TOTAL (test code=BILT) mg/dL 0.0-1.0 BILIRUBIN DIRECT (test code=BILD) mg/dL 0.0-0.20 SGOT/AST (test code=AST) IUnit/L 15-37 SGPT/ALT (test code=ALT) IUnit/L 12-78 ALKALINE PHOSPHATASE TOTAL (test code=ALKP) IUnit/L 45-117 [id number] 17:46:00* Test Item Value Reference Range Comments LIPASE (test code=LIP) U/L 73.0-393.0 [id number] 17:46:00* Test Item Value Reference Range Comments TROPONIN-I (test code=TROPI) ng/mL 0-0.045 CBC W/O [id number] 17:36:00* Test Item Value Reference Range Comments WHITE BLOOD CELL (test code=WBC) 5.0 K/mm3 4.5-12.5 RED BLOOD CELL (test code=RBC) 4.34 mill/mm3 3.7-5.2 HEMOGLOBIN (test code=HGB) 12.0 gram/dL 11.5-15.5 HEMATOCRIT (test code=HCT) 38.9 % 36.0-46.0 MEAN CELL VOLUME (test code=MCV) 89.6 fL 80-98 MEAN CELL HGB (test code=MCH) 27.6 picogram 27.0-33.0 MEAN CELL HGB CONCETRATION (test code=MCHC) 30.8 gram/dL 33.0-36.0 RED CELL DISTRIBUTION WIDTH (test code=RDW) 14.1 % 11.6-16.2 PLATELET COUNT (test code=PLT) 302 K/mm3 150-450 MEAN PLATELET VOLUME (test code=MPV) 9.1 fL 6.7-11.0 - XR CHEST 1 [id number] 17:01:00 FAX: Ernesto Damico [phone] [place]: [address] St: REG FAX: Sonam Shea MD [phone] Name: VIRGEN CACERES [facility] : 1960 Age/S: 57/F Sharon Tavarez Unit #: [id number] Loc: [place] [address] Phys: Sonam Shea MD Acct: [id number] Dis Date: Status: REG ER PHONE #: [phone] Exam Date: 08/06/2018 1653 FAX #: [phone] Reason: Abdominal Pain EXAMS: CPT CODE: [id number] XR CHEST 1 V 13365 REASON FOR EXAM: Abdominal Pain EXAM ORDER DATE: 08/06/2018 4:36 PM Ordering MLeena: Sonam Shea MD PROCEDURE: - XR CHEST 1 V COMPARISON: 07/15/2018 FINDINGS: Portable AP frontal view of the chest obtained at 4:52 PM shows clear lungs without evidence of consolidation. There is no evidence of effusion. The heart size is within normal limits. Pulmonary vasculatures are unremarkable. Stable appearance of the cervical spinal stimulator IMPRESSION: No active disease. at 1701 Reported and signed by: Timothy Solano M.D. CC: Ernesto Ashley Marsha L MD Technologist: JAVIER HENDRICKS RT(R) Trnscrd Date/Time/By: 08/06/2018 (5148) : By: Anju Orig Print D/T: S: 08/06/2018 (6452) PAGE 1 Signed Report CBC W/MANUAL [id number] 09:44:00 * Test Item Value Reference Range Comments WHITE BLOOD CELL (test code=WBC) 3.0 K/mm3 4.5-12.5 RED BLOOD CELL (test code=RBC) 4.29 mill/mm3 3.7-5.2 HEMOGLOBIN (test code=HGB) 12.4 gram/dL 11.5-15.5 HEMATOCRIT (test code=HCT) 38.1 % 36.0-46.0 MEAN CELL VOLUME (test code=MCV) 88.8 fL 80-98 MEAN CELL HGB (test code=MCH) 28.9 picogram 27.0-33.0 MEAN CELL HGB CONCETRATION (test code=MCHC) 32.5 gram/dL 33.0-36.0 RED CELL DISTRIBUTION WIDTH (test code=RDW) 14.6 % 11.6-16.2 RED CELL DISTRIBUTION WIDTH SD (test code=RDW-SD) 47.4 fL 37.0-51.0 PLATELET COUNT (test code=PLT) 217 K/mm3 150-450 MEAN PLATELET VOLUME (test code=MPV) 9.3 fL 6.7-11.0 IMMATURE GRANULOCYTE % (test code=IG%) 0.3 % 0.0-5.0 NUCLEATED RBC % (test code=NRBC%) 0.0 % 0-0 NEUTROPHIL # (test code=NT#) 1.27 K/mm3 1.8-7.7 IMMATURE GRANULOCYTE # (test code=IG#) 0.01 x10 3/uL 0-0.03 LYMPHOCYTE # (test code=LY#) 1.25 K/mm3 1.0-5.0 MONOCYTE # (test code=MO#) 0.40 K/mm3 0-0.8 EOSINOPHIL # (test code=EO#) 0.01 K/mm3 0.0-0.5 BASOPHIL # (test code=BA#) 0.03 K/mm3 0.0-0.2 NUCLEATED RBC # (test code=NRBC#) 0.00 K/mm3 0.0-0.1 MANUAL DIFF REQUIRED (test code=MDIFF) YES STAIN ACCEPTABILITY (test code=STN ACCEPTABLE) STAIN ACCEPTABLE TOTAL CELLS COUNTED (test code=TCC) 114 #CELLS SEGMENTED NEUTROPHILS (test code=SEG) 47.3 % 39-69 BAND NEUTROPHIL (test code=BAND) 1.1 % 0-10 LYMPHOCYTE (test code=LYMPH) 28.8 % 25-55 REACTIVE LYMPH (test code=RELYMPH) 7.0 % MONOCYTE (test code=MON) 14.0 % 0-10 EOSINOPHIL (test code=EOS) 0 % 0.0-5.0 BASOPHIL (test code=BASO) 1.8 % 0-1.0 METAMYELOCYTE (test code=META) 0 % 0-0 MYELOCYTE (test code=MYELO) 0 % 0.0-0.0 PROMYELOCYTE (test code=PROM) 0 % 0-0 HYPOCHROMIA (test code=HYPO) 1+ PLATELET ESTIMATE (test code=PLTEST) ADEQUATE PLATELET MORPHOLOGY (test code=PLTMORPH) NORMAL IMMATURE FORMS (test code=IMMAT) 0 % BASIC METABOLIC [id number] 07:27:00* Test Item Value Reference Range Comments SODIUM (test code=NA) 136 mmol/L 136-145 POTASSIUM (test code=K) 3.7 mmol/L 3.5-5.1 CHLORIDE (test code=CL) 99.0 mmol/L 98-107 CARBON DIOXIDE (test code=CO2) 29.0 mmol/L 21-32 ANION GAP (test code=GAP) 11.7 10-20 GLUCOSE (test code=GLU) 106 mg/dL 74-106 BLOOD UREA NITROGEN (test code=BUN) 4 mg/dL 7-18 GLOMERULAR FILTRATION RATE (test code=GFR) > 60 mL/min >=60 Estimated GFR by using Modified MDRD formula.Chronic kidney disease is defined as either kidney damageor GFR <60 mL/min/1.73 m2 for >3 months. CREATININE (test code=CREAT) 0.60 mg/dL 0.55-1.02 Note change in reference range due to change in reagent. BUN/CREATININE RATIO (test code=BUN/CREA) 6.7 10-20 CALCIUM (test code=CA) 8.5 mg/dL 8.5-10.1 BASIC METABOLIC [id number] 07:12:00* Test Item Value Reference Range Comments SODIUM (test code=NA) 136 mmol/L 136-145 POTASSIUM (test code=K) 3.7 mmol/L 3.5-5.1 CHLORIDE (test code=CL) 99.0 mmol/L 98-107 CARBON DIOXIDE (test code=CO2) mmol/L 21-32 ANION GAP (test code=GAP) 10-20 GLUCOSE (test code=GLU) mg/dL 74-106 BLOOD UREA NITROGEN (test code=BUN) mg/dL 7-18 GLOMERULAR FILTRATION RATE (test code=GFR) mL/min >=60 CREATININE (test code=CREAT) mg/dL 0.55-1.02 BUN/CREATININE RATIO (test code=BUN/CREA) 10-20 CALCIUM (test code=CA) mg/dL 8.5-10.1 CBC W/MANUAL [id number] 07:02:00* Test Item Value Reference Range Comments WHITE BLOOD CELL (test code=WBC) 3.0 K/mm3 4.5-12.5 RED BLOOD CELL (test code=RBC) 4.29 mill/mm3 3.7-5.2 HEMOGLOBIN (test code=HGB) 12.4 gram/dL 11.5-15.5 HEMATOCRIT (test code=HCT) 38.1 % 36.0-46.0 MEAN CELL VOLUME (test code=MCV) 88.8 fL 80-98 MEAN CELL HGB (test code=MCH) 28.9 picogram 27.0-33.0 MEAN CELL HGB CONCETRATION (test code=MCHC) 32.5 gram/dL 33.0-36.0 RED CELL DISTRIBUTION WIDTH (test code=RDW) 14.6 % 11.6-16.2 RED CELL DISTRIBUTION WIDTH SD (test code=RDW-SD) 47.4 fL 37.0-51.0 PLATELET COUNT (test code=PLT) 217 K/mm3 150-450 MEAN PLATELET VOLUME (test code=MPV) 9.3 fL 6.7-11.0 IMMATURE GRANULOCYTE % (test code=IG%) 0.3 % 0.0-5.0 NUCLEATED RBC % (test code=NRBC%) 0.0 % 0-0 NEUTROPHIL # (test code=NT#) 1.27 K/mm3 1.8-7.7 IMMATURE GRANULOCYTE # (test code=IG#) 0.01 x10 3/uL 0-0.03 LYMPHOCYTE # (test code=LY#) 1.25 K/mm3 1.0-5.0 MONOCYTE # (test code=MO#) 0.40 K/mm3 0-0.8 EOSINOPHIL # (test code=EO#) 0.01 K/mm3 0.0-0.5 BASOPHIL # (test code=BA#) 0.03 K/mm3 0.0-0.2 NUCLEATED RBC # (test code=NRBC#) 0.00 K/mm3 0.0-0.1 MANUAL DIFF REQUIRED (test code=MDIFF) YES STAIN ACCEPTABILITY (test code=STN ACCEPTABLE) TOTAL CELLS COUNTED (test code=TCC) #CELLS SEGMENTED NEUTROPHILS (test code=SEG) % 39-69 LYMPHOCYTE (test code=LYMPH) % 25-55 MONOCYTE (test code=MON) % 0-10 EOSINOPHIL (test code=EOS) % 0.0-5.0 CABOT RINGS (test code=CAB) MORPHOLOGY COMMENT (test code=MOC) PLATELET ESTIMATE (test code=PLTEST) PLATELET MORPHOLOGY (test code=PLTMORPH) CBC W/MANUAL [id number] 07:02:00* Test Item Value Reference Range Comments WHITE BLOOD CELL (test code=WBC) 3.0 K/mm3 4.5-12.5 RED BLOOD CELL (test code=RBC) 4.29 mill/mm3 3.7-5.2 HEMOGLOBIN (test code=HGB) 12.4 gram/dL 11.5-15.5 HEMATOCRIT (test code=HCT) 38.1 % 36.0-46.0 MEAN CELL VOLUME (test code=MCV) 88.8 fL 80-98 MEAN CELL HGB (test code=MCH) 28.9 picogram 27.0-33.0 MEAN CELL HGB CONCETRATION (test code=MCHC) 32.5 gram/dL 33.0-36.0 RED CELL DISTRIBUTION WIDTH (test code=RDW) 14.6 % 11.6-16.2 RED CELL DISTRIBUTION WIDTH SD (test code=RDW-SD) 47.4 fL 37.0-51.0 PLATELET COUNT (test code=PLT) 217 K/mm3 150-450 MEAN PLATELET VOLUME (test code=MPV) 9.3 fL 6.7-11.0 IMMATURE GRANULOCYTE % (test code=IG%) 0.3 % 0.0-5.0 NUCLEATED RBC % (test code=NRBC%) 0.0 % 0-0 NEUTROPHIL # (test code=NT#) 1.27 K/mm3 1.8-7.7 IMMATURE GRANULOCYTE # (test code=IG#) 0.01 x10 3/uL 0-0.03 LYMPHOCYTE # (test code=LY#) 1.25 K/mm3 1.0-5.0 MONOCYTE # (test code=MO#) 0.40 K/mm3 0-0.8 EOSINOPHIL # (test code=EO#) 0.01 K/mm3 0.0-0.5 BASOPHIL # (test code=BA#) 0.03 K/mm3 0.0-0.2 NUCLEATED RBC # (test code=NRBC#) 0.00 K/mm3 0.0-0.1 MANUAL DIFF REQUIRED (test code=MDIFF) YES STAIN ACCEPTABILITY (test code=STN ACCEPTABLE) TOTAL CELLS COUNTED (test code=TCC) #CELLS SEGMENTED NEUTROPHILS (test code=SEG) % 39-69 LYMPHOCYTE (test code=LYMPH) % 25-55 MONOCYTE (test code=MON) % 0-10 EOSINOPHIL (test code=EOS) % 0.0-5.0 MORPHOLOGY COMMENT (test code=MOC) PLATELET ESTIMATE (test code=PLTEST) PLATELET MORPHOLOGY (test code=PLTMORPH) CBC W/MANUAL [id number] 07:02:00* Test Item Value Reference Range Comments WHITE BLOOD CELL (test code=WBC) 3.0 K/mm3 4.5-12.5 RED BLOOD CELL (test code=RBC) 4.29 mill/mm3 3.7-5.2 HEMOGLOBIN (test code=HGB) 12.4 gram/dL 11.5-15.5 HEMATOCRIT (test code=HCT) 38.1 % 36.0-46.0 MEAN CELL VOLUME (test code=MCV) 88.8 fL 80-98 MEAN CELL HGB (test code=MCH) 28.9 picogram 27.0-33.0 MEAN CELL HGB CONCETRATION (test code=MCHC) 32.5 gram/dL 33.0-36.0 RED CELL DISTRIBUTION WIDTH (test code=RDW) 14.6 % 11.6-16.2 RED CELL DISTRIBUTION WIDTH SD (test code=RDW-SD) 47.4 fL 37.0-51.0 PLATELET COUNT (test code=PLT) 217 K/mm3 150-450 MEAN PLATELET VOLUME (test code=MPV) 9.3 fL 6.7-11.0 IMMATURE GRANULOCYTE % (test code=IG%) 0.3 % 0.0-5.0 NUCLEATED RBC % (test code=NRBC%) 0.0 % 0-0 NEUTROPHIL # (test code=NT#) 1.27 K/mm3 1.8-7.7 IMMATURE GRANULOCYTE # (test code=IG#) 0.01 x10 3/uL 0-0.03 LYMPHOCYTE # (test code=LY#) 1.25 K/mm3 1.0-5.0 MONOCYTE # (test code=MO#) 0.40 K/mm3 0-0.8 EOSINOPHIL # (test code=EO#) 0.01 K/mm3 0.0-0.5 BASOPHIL # (test code=BA#) 0.03 K/mm3 0.0-0.2 NUCLEATED RBC # (test code=NRBC#) 0.00 K/mm3 0.0-0.1 MANUAL DIFF REQUIRED (test code=MDIFF) YES STAIN ACCEPTABILITY (test code=STN ACCEPTABLE) TOTAL CELLS COUNTED (test code=TCC) #CELLS SEGMENTED NEUTROPHILS (test code=SEG) % 39-69 LYMPHOCYTE (test code=LYMPH) % 25-55 MONOCYTE (test code=MON) % 0-10 MORPHOLOGY COMMENT (test code=MOC) PLATELET ESTIMATE (test code=PLTEST) PLATELET MORPHOLOGY (test code=PLTMORPH) CBC W/MANUAL [id number] 07:01:00* Test Item Value Reference Range Comments WHITE BLOOD CELL (test code=WBC) 3.0 K/mm3 4.5-12.5 RED BLOOD CELL (test code=RBC) 4.29 mill/mm3 3.7-5.2 HEMOGLOBIN (test code=HGB) 12.4 gram/dL 11.5-15.5 HEMATOCRIT (test code=HCT) 38.1 % 36.0-46.0 MEAN CELL VOLUME (test code=MCV) 88.8 fL 80-98 MEAN CELL HGB (test code=MCH) 28.9 picogram 27.0-33.0 MEAN CELL HGB CONCETRATION (test code=MCHC) 32.5 gram/dL 33.0-36.0 RED CELL DISTRIBUTION WIDTH (test code=RDW) 14.6 % 11.6-16.2 RED CELL DISTRIBUTION WIDTH SD (test code=RDW-SD) 47.4 fL 37.0-51.0 PLATELET COUNT (test code=PLT) 217 K/mm3 150-450 MEAN PLATELET VOLUME (test code=MPV) 9.3 fL 6.7-11.0 IMMATURE GRANULOCYTE % (test code=IG%) 0.3 % 0.0-5.0 NUCLEATED RBC % (test code=NRBC%) 0.0 % 0-0 NEUTROPHIL # (test code=NT#) 1.27 K/mm3 1.8-7.7 IMMATURE GRANULOCYTE # (test code=IG#) 0.01 x10 3/uL 0-0.03 LYMPHOCYTE # (test code=LY#) 1.25 K/mm3 1.0-5.0 MONOCYTE # (test code=MO#) 0.40 K/mm3 0-0.8 EOSINOPHIL # (test code=EO#) 0.01 K/mm3 0.0-0.5 BASOPHIL # (test code=BA#) 0.03 K/mm3 0.0-0.2 NUCLEATED RBC # (test code=NRBC#) 0.00 K/mm3 0.0-0.1 MANUAL DIFF REQUIRED (test code=MDIFF) YES STAIN ACCEPTABILITY (test code=STN ACCEPTABLE) TOTAL CELLS COUNTED (test code=TCC) #CELLS SEGMENTED NEUTROPHILS (test code=SEG) % 39-69 LYMPHOCYTE (test code=LYMPH) % 25-55 MONOCYTE (test code=MON) % 0-10 EOSINOPHIL (test code=EOS) % 0.0-5.0 CABOT RINGS (test code=CAB) MORPHOLOGY COMMENT (test code=MOC) PLATELET ESTIMATE (test code=PLTEST) PLATELET MORPHOLOGY (test code=PLTMORPH) CBC W/MANUAL [id number] 07:01:00* Test Item Value Reference Range Comments WHITE BLOOD CELL (test code=WBC) 3.0 K/mm3 4.5-12.5 RED BLOOD CELL (test code=RBC) 4.29 mill/mm3 3.7-5.2 HEMOGLOBIN (test code=HGB) 12.4 gram/dL 11.5-15.5 HEMATOCRIT (test code=HCT) 38.1 % 36.0-46.0 MEAN CELL VOLUME (test code=MCV) 88.8 fL 80-98 MEAN CELL HGB (test code=MCH) 28.9 picogram 27.0-33.0 MEAN CELL HGB CONCETRATION (test code=MCHC) 32.5 gram/dL 33.0-36.0 RED CELL DISTRIBUTION WIDTH (test code=RDW) 14.6 % 11.6-16.2 RED CELL DISTRIBUTION WIDTH SD (test code=RDW-SD) 47.4 fL 37.0-51.0 PLATELET COUNT (test code=PLT) 217 K/mm3 150-450 MEAN PLATELET VOLUME (test code=MPV) 9.3 fL 6.7-11.0 IMMATURE GRANULOCYTE % (test code=IG%) 0.3 % 0.0-5.0 NUCLEATED RBC % (test code=NRBC%) 0.0 % 0-0 NEUTROPHIL # (test code=NT#) 1.27 K/mm3 1.8-7.7 IMMATURE GRANULOCYTE # (test code=IG#) 0.01 x10 3/uL 0-0.03 LYMPHOCYTE # (test code=LY#) 1.25 K/mm3 1.0-5.0 MONOCYTE # (test code=MO#) 0.40 K/mm3 0-0.8 EOSINOPHIL # (test code=EO#) 0.01 K/mm3 0.0-0.5 BASOPHIL # (test code=BA#) 0.03 K/mm3 0.0-0.2 NUCLEATED RBC # (test code=NRBC#) 0.00 K/mm3 0.0-0.1 MANUAL DIFF REQUIRED (test code=MDIFF) YES STAIN ACCEPTABILITY (test code=STN ACCEPTABLE) TOTAL CELLS COUNTED (test code=TCC) #CELLS SEGMENTED NEUTROPHILS (test code=SEG) % 39-69 LYMPHOCYTE (test code=LYMPH) % 25-55 MONOCYTE (test code=MON) % 0-10 EOSINOPHIL (test code=EOS) % 0.0-5.0 CABOT RINGS (test code=CAB) MORPHOLOGY COMMENT (test code=MOC) PLATELET ESTIMATE (test code=PLTEST) PLATELET MORPHOLOGY (test code=PLTMORPH) CBC W/AUTO [id number] 06:53:00* Test Item Value Reference Range Comments WHITE BLOOD CELL (test code=WBC) K/mm3 4.5-12.5 RED BLOOD CELL (test code=RBC) mill/mm3 3.7-5.2 HEMOGLOBIN (test code=HGB) 12.4 gram/dL 11.5-15.5 HEMATOCRIT (test code=HCT) 38.1 % 36.0-46.0 MEAN CELL VOLUME (test code=MCV) fL 80-98 MEAN CELL HGB (test code=MCH) picogram 27.0-33.0 MEAN CELL HGB CONCETRATION (test code=MCHC) gram/dL 33.0-36.0 RED CELL DISTRIBUTION WIDTH (test code=RDW) % 11.6-16.2 RED CELL DISTRIBUTION WIDTH SD (test code=RDW-SD) fL 37.0-51.0 PLATELET COUNT (test code=PLT) K/mm3 150-450 MEAN PLATELET VOLUME (test code=MPV) fL 6.7-11.0 NEUTROPHIL % (test code=NT%) % 39.0-69.0 IMMATURE GRANULOCYTE % (test code=IG%) % 0.0-5.0 LYMPHOCYTE % (test code=LY%) % 25.0-55.0 MONOCYTE % (test code=MO%) % 0.0-10.0 EOSINOPHIL % (test code=EO%) % 0.0-5.0 BASOPHIL % (test code=BA%) % 0.0-1.0 NEUTROPHIL # (test code=NT#) K/mm3 1.8-7.7 LYMPHOCYTE # (test code=LY#) K/mm3 1.0-5.0 MONOCYTE # (test code=MO#) K/mm3 0-0.8 EOSINOPHIL # (test code=EO#) K/mm3 0.0-0.5 BASOPHIL # (test code=BA#) K/mm3 0.0-0.2 BASIC METABOLIC [id number] 16:36:00* Test Item Value Reference Range Comments SODIUM (test code=NA) 133 mmol/L 136-145 POTASSIUM (test code=K) 3.4 mmol/L 3.5-5.1 CHLORIDE (test code=CL) 97.0 mmol/L 98-107 CARBON DIOXIDE (test code=CO2) 29.0 mmol/L 21-32 ANION GAP (test code=GAP) 10.4 10-20 GLUCOSE (test code=GLU) 98 mg/dL 74-106 BLOOD UREA NITROGEN (test code=BUN) 3 mg/dL 7-18 GLOMERULAR FILTRATION RATE (test code=GFR) > 60 mL/min >=60 Estimated GFR by using Modified MDRD formula.Chronic kidney disease is defined as either kidney damageor GFR <60 mL/min/1.73 m2 for >3 months. CREATININE (test code=CREAT) 0.50 mg/dL 0.55-1.02 Note change in reference range due to change in reagent. BUN/CREATININE RATIO (test code=BUN/CREA) 6.0 10-20 CALCIUM (test code=CA) 8.4 mg/dL 8.5-10.1 CBC W/AUTO [id number] 06:59:00* Test Item Value Reference Range Comments WHITE BLOOD CELL (test code=WBC) 2.7 K/mm3 4.5-12.5 RED BLOOD CELL (test code=RBC) 3.91 mill/mm3 3.7-5.2 HEMOGLOBIN (test code=HGB) 11.4 gram/dL 11.5-15.5 HEMATOCRIT (test code=HCT) 35.1 % 36.0-46.0 MEAN CELL VOLUME (test code=MCV) 89.8 fL 80-98 MEAN CELL HGB (test code=MCH) 29.2 picogram 27.0-33.0 MEAN CELL HGB CONCETRATION (test code=MCHC) 32.5 gram/dL 33.0-36.0 RED CELL DISTRIBUTION WIDTH (test code=RDW) 14.7 % 11.6-16.2 RED CELL DISTRIBUTION WIDTH SD (test code=RDW-SD) 48.3 fL 37.0-51.0 PLATELET COUNT (test code=PLT) 194 K/mm3 150-450 MEAN PLATELET VOLUME (test code=MPV) 9.3 fL 6.7-11.0 NEUTROPHIL % (test code=NT%) 63.1 % 39.0-69.0 IMMATURE GRANULOCYTE % (test code=IG%) 0.4 % 0.0-5.0 LYMPHOCYTE % (test code=LY%) 24.0 % 25.0-55.0 MONOCYTE % (test code=MO%) 11.8 % 0.0-10.0 EOSINOPHIL % (test code=EO%) 0.0 % 0.0-5.0 BASOPHIL % (test code=BA%) 0.7 % 0.0-1.0 NUCLEATED RBC % (test code=NRBC%) 0.0 % 0-0 NEUTROPHIL # (test code=NT#) 1.71 K/mm3 1.8-7.7 IMMATURE GRANULOCYTE # (test code=IG#) 0.01 x10 3/uL 0-0.03 LYMPHOCYTE # (test code=LY#) 0.65 K/mm3 1.0-5.0 MONOCYTE # (test code=MO#) 0.32 K/mm3 0-0.8 EOSINOPHIL # (test code=EO#) 0.00 K/mm3 0.0-0.5 BASOPHIL # (test code=BA#) 0.02 K/mm3 0.0-0.2 NUCLEATED RBC # (test code=NRBC#) 0.00 K/mm3 0.0-0.1 MANUAL DIFF REQUIRED (test code=MDIFF) NO GASTRIC,[id number] 14:24:00 RUN DATE: 07/17/18 [facility] - Lab PAGE 1 RUN TIME: 1424 Specimen Inqui ry RUN USER: INTERFACE PATIENT: VIRGEN CACERES ACCT #: V [id number] LOC: TATYANA U #: [id number] AGE/SX: 57/F ROOM: [facility] RE07/12/18[facility] DR: Aracelis Santiago MD : 58 BED: A DIS: STATUS: ADM IN TLOC: SPEC #: [id number] RECD: 07/16/18-1052 STATUS: MADINA REQ #: [id number] MARVIN: 07/13/[address] [facility] [address]: Billy Auguste MD ENTERED: 07/16/18-105 SP TYPE: GASTRIC BX OTHR DR: Bruno Auguste MD, [place] E DOORDERED: GROSS COPIES TO: Billy Auguste MD [address] [place] [address] Ernesto Ashley DO [address] [place] [address] PROCEDURES: GROSS (07/17/18-1328) TI SSUES: 1. GASTRIC CORPUS - BX COLD 2. ESOPHAGUS, NOS - IRREGUL AR Z-LINE BX COLD CLINICAL HISTORY COLLECTION DATE: 07/13/18 GI BLEED FINAL DIAGNOSIS Stomach, biopsy: ANTRAL MUCOSA WITH MILD CHRONIC INFLAMMATION OXYNTIC GASTRIC MUCOSA WITH NO SIGNIFICANT INFLAMM ATION NEGATIVE FOR INTESTINAL METAPLASIA, DYSPLASIA OR MALIGNANCY NO DIAGNOSTIC HELICOBACTER IDENTIFIED Esophagus, irregular z-line, biopsy: SUGGESTIVE OF MILD REFLUX ESOPHAGITIS NEGATIVE FOR INTESTINAL MET APLASIA, OR MALIGNANCY FLAQUITA/lily Bullock [id number], [id number] CONTINUED ON NEXT PAGE RUN DATE: 07/17/18 [facility] - [facility] PAGE 2 RUN TIME: 1424 Specimen Inquiry RUN USER: INTERFACE SPEC #: [id number] PATIENT: VIRGEN CACERES #[id number] ([place] nued) MACROSCOPIC The specimen is received in formalin , labeled with the patient's name, identified as "gastric biopsy", and consist s of four pieces of pierson-pink soft tissue ranging from 0.3 to 0.4 cm, entirely submitted as (1) for H E and giemsa stains. The specimen is received in formalin, labeled with the patient's name, identified as "irregular z-line bi opsy", and consists of a single portion of pierson-pink soft tissue measuring 0.3 cm, entirely submitted as (2). GROSS PERFORMED AT [facility] [address] [place] [address] (p)[phone] MICROSCOPIC All of the stains, including a ny controls performed, stain appropriately. MICROSCOPIC PERFORMED AT [facility] [address] [place] [address] (p)[phone] PERFORMING SITE Diagnosis performed at: [facility] [address] [place] [address] Signed SIGNATURE ON FILE Deandra Ardon MD 07/17/18 1424 END OF REPORT BASIC METABOLIC PANEL 2018-07-17 06:45:00* Test Item Value Reference Range Comments SODIUM (test code=NA) 133 mmol/L 136-145 POTASSIUM (test code=K) 3.0 mmol/L 3.5-5.1 CHLORIDE (test code=CL) 96.0 mmol/L 98-107 CARBON DIOXIDE (test code=CO2) 29.0 mmol/L 21-32 ANION GAP (test code=GAP) 11.0 10-20 GLUCOSE (test code=GLU) 101 mg/dL 74-106 BLOOD UREA NITROGEN (test code=BUN) 7 mg/dL 7-18 GLOMERULAR FILTRATION RATE (test code=GFR) > 60 mL/min >=60 Estimated GFR by using Modified MDRD formula.Chronic kidney disease is defined as either kidney damageor GFR <60 mL/min/1.73 m2 for >3 months. CREATININE (test code=CREAT) 0.50 mg/dL 0.55-1.02 Note change in reference range due to change in reagent. BUN/CREATININE RATIO (test code=BUN/CREA) 14.0 10-20 CALCIUM (test code=CA) 8.3 mg/dL 8.5-10.1 BASIC METABOLIC [id number] 06:41:00* Test Item Value Reference Range Comments SODIUM (test code=NA) 133 mmol/L 136-145 POTASSIUM (test code=K) 3.0 mmol/L 3.5-5.1 CHLORIDE (test code=CL) 96.0 mmol/L 98-107 CARBON DIOXIDE (test code=CO2) mmol/L 21-32 ANION GAP (test code=GAP) 10-20 GLUCOSE (test code=GLU) mg/dL 74-106 BLOOD UREA NITROGEN (test code=BUN) mg/dL 7-18 GLOMERULAR FILTRATION RATE (test code=GFR) mL/min >=60 CREATININE (test code=CREAT) mg/dL 0.55-1.02 BUN/CREATININE RATIO (test code=BUN/CREA) 10-20 CALCIUM (test code=CA) mg/dL 8.5-10.1 CBC W/AUTO [id number] 06:06:00* Test Item Value Reference Range Comments WHITE BLOOD CELL (test code=WBC) 4.6 K/mm3 4.5-12.5 RED BLOOD CELL (test code=RBC) 4.22 mill/mm3 3.7-5.2 HEMOGLOBIN (test code=HGB) 12.3 gram/dL 11.5-15.5 HEMATOCRIT (test code=HCT) 38.1 % 36.0-46.0 MEAN CELL VOLUME (test code=MCV) 90.3 fL 80-98 MEAN CELL HGB (test code=MCH) 29.1 picogram 27.0-33.0 MEAN CELL HGB CONCETRATION (test code=MCHC) 32.3 gram/dL 33.0-36.0 RED CELL DISTRIBUTION WIDTH (test code=RDW) 14.7 % 11.6-16.2 RED CELL DISTRIBUTION WIDTH SD (test code=RDW-SD) 48.6 fL 37.0-51.0 PLATELET COUNT (test code=PLT) 191 K/mm3 150-450 MEAN PLATELET VOLUME (test code=MPV) 9.1 fL 6.7-11.0 NEUTROPHIL % (test code=NT%) 71.1 % 39.0-69.0 IMMATURE GRANULOCYTE % (test code=IG%) 0.2 % 0.0-5.0 LYMPHOCYTE % (test code=LY%) 19.0 % 25.0-55.0 MONOCYTE % (test code=MO%) 9.5 % 0.0-10.0 EOSINOPHIL % (test code=EO%) 0.0 % 0.0-5.0 BASOPHIL % (test code=BA%) 0.2 % 0.0-1.0 NUCLEATED RBC % (test code=NRBC%) 0.0 % 0-0 NEUTROPHIL # (test code=NT#) 3.28 K/mm3 1.8-7.7 IMMATURE GRANULOCYTE # (test code=IG#) 0.01 x10 3/uL 0-0.03 LYMPHOCYTE # (test code=LY#) 0.88 K/mm3 1.0-5.0 MONOCYTE # (test code=MO#) 0.44 K/mm3 0-0.8 EOSINOPHIL # (test code=EO#) 0.00 K/mm3 0.0-0.5 BASOPHIL # (test code=BA#) 0.01 K/mm3 0.0-0.2 NUCLEATED RBC # (test code=NRBC#) 0.00 K/mm3 0.0-0.1 CBC W/AUTO [id number] 06:03:00* Test Item Value Reference Range Comments WHITE BLOOD CELL (test code=WBC) K/mm3 4.5-12.5 RED BLOOD CELL (test code=RBC) mill/mm3 3.7-5.2 HEMOGLOBIN (test code=HGB) 12.3 gram/dL 11.5-15.5 HEMATOCRIT (test code=HCT) 38.1 % 36.0-46.0 MEAN CELL VOLUME (test code=MCV) fL 80-98 MEAN CELL HGB (test code=MCH) picogram 27.0-33.0 MEAN CELL HGB CONCETRATION (test code=MCHC) gram/dL 33.0-36.0 RED CELL DISTRIBUTION WIDTH (test code=RDW) % 11.6-16.2 RED CELL DISTRIBUTION WIDTH SD (test code=RDW-SD) fL 37.0-51.0 PLATELET COUNT (test code=PLT) K/mm3 150-450 MEAN PLATELET VOLUME (test code=MPV) fL 6.7-11.0 NEUTROPHIL % (test code=NT%) % 39.0-69.0 IMMATURE GRANULOCYTE % (test code=IG%) % 0.0-5.0 LYMPHOCYTE % (test code=LY%) % 25.0-55.0 MONOCYTE % (test code=MO%) % 0.0-10.0 EOSINOPHIL % (test code=EO%) % 0.0-5.0 BASOPHIL % (test code=BA%) % 0.0-1.0 NEUTROPHIL # (test code=NT#) K/mm3 1.8-7.7 LYMPHOCYTE # (test code=LY#) K/mm3 1.0-5.0 MONOCYTE # (test code=MO#) K/mm3 0-0.8 EOSINOPHIL # (test code=EO#) K/mm3 0.0-0.5 BASOPHIL # (test code=BA#) K/mm3 0.0-0.2 URINALYSIS [id number] 12:33:00* Test Item Value Reference Range Comments UA COLOR (test code=COLU) LIGHT YELLOW YELLOW UA APPEARANCE (test code=APPU) HAZY CLEAR UA GLUCOSE DIPSTICK (test code=DGLUU) NEGATIVE mg/dL NEGATIVE UA BILIRUBIN DIPSTICK (test code=BILU) NEGATIVE NEGATIVE UA KETONE DIPSTICK (test code=KETU) NEGATIVE mg/dL NEGATIVE UA SPECIFIC GRAVITY (test code=SGU) 1.010 1.001-1.035 UA BLOOD DIPSTICK (test code=DICK) TRACE NEGATIVE UA PH DIPSTICK (test code=DALE) 7.0 5.0-8.0 UA PROTEIN DIPSTICK (test code=PROU) NEGATIVE mg/dL Neg-15 UA UROBILINIOGEN DIPSTICK (test code=URO) 1 mg/dL (1+) mg/dL 0.0-0.2 UA NITRITE DIPSTICK (test code=DAVID) NEGATIVE NEGATIVE UA LEUKOCYTE ESTERASE W REFLEX (test code=LEUUR) NEGATIVE NEGATIVE UA WBC (test code=WBCU) 0-5 per HPF 0-5 IN SOME URINARY TRACT INFECTIONS THERE MAY NOT BE ENOUGHWBCs IN THE URINE TO TRIGGER AN AUTOMATIC (REFLEX) URINECULTURE. A SEPERATE ORDER FOR URINE CULTURE IS RECOMMENDEDIF THERE IS STRONG SUPPORT FOR A URINARY TRACT INFECTIONCLINICALLY. UA RBC (test code=RBCU) 0-2 per HPF 0-5 UA EPITHELIAL CELLS (test code=EPIU) Moderate (5-10/hpf) per HPF Few UA BACTERIA (test code=BACU) FEW per HPF NONE UA AMORPHOUS SEDIMENT (test code=AMORU) FEW per LPF NONE Urine Source? Clean CatchURINALYSIS [id number] 12:31:00* Test Item Value Reference Range Comments UA COLOR (test code=COLU) LIGHT YELLOW YELLOW UA APPEARANCE (test code=APPU) HAZY CLEAR UA GLUCOSE DIPSTICK (test code=DGLUU) NEGATIVE mg/dL NEGATIVE UA BILIRUBIN DIPSTICK (test code=BILU) NEGATIVE NEGATIVE UA KETONE DIPSTICK (test code=KETU) NEGATIVE mg/dL NEGATIVE UA SPECIFIC GRAVITY (test code=SGU) 1.010 1.001-1.035 UA BLOOD DIPSTICK (test code=DICK) TRACE NEGATIVE UA PH DIPSTICK (test code=DALE) 7.0 5.0-8.0 UA PROTEIN DIPSTICK (test code=PROU) NEGATIVE mg/dL Neg-15 UA UROBILINIOGEN DIPSTICK (test code=URO) 1 mg/dL (1+) mg/dL 0.0-0.2 UA NITRITE DIPSTICK (test code=DAVID) NEGATIVE NEGATIVE UA LEUKOCYTE ESTERASE W REFLEX (test code=LEUUR) NEGATIVE NEGATIVE UA WBC (test code=WBCU) per HPF 0-5 Urine Source? Clean CatchBASIC METABOLIC [id number] 06:22:00* Test Item Value Reference Range Comments SODIUM (test code=NA) 131 mmol/L 136-145 POTASSIUM (test code=K) 3.1 mmol/L 3.5-5.1 CHLORIDE (test code=CL) 95.0 mmol/L 98-107 CARBON DIOXIDE (test code=CO2) 29.0 mmol/L 21-32 ANION GAP (test code=GAP) 10.1 10-20 GLUCOSE (test code=GLU) 124 mg/dL 74-106 BLOOD UREA NITROGEN (test code=BUN) 9 mg/dL 7-18 GLOMERULAR FILTRATION RATE (test code=GFR) > 60 mL/min >=60 Estimated GFR by using Modified MDRD formula.Chronic kidney disease is defined as either kidney damageor GFR <60 mL/min/1.73 m2 for >3 months. CREATININE (test code=CREAT) 0.50 mg/dL 0.55-1.02 Note change in reference range due to change in reagent. BUN/CREATININE RATIO (test code=BUN/CREA) 18.0 10-20 CALCIUM (test code=CA) 8.3 mg/dL 8.5-10.1 CBC W/AUTO [id number] 06:10:00* Test Item Value Reference Range Comments WHITE BLOOD CELL (test code=WBC) 4.7 K/mm3 4.5-12.5 RED BLOOD CELL (test code=RBC) 4.07 mill/mm3 3.7-5.2 HEMOGLOBIN (test code=HGB) 11.6 gram/dL 11.5-15.5 HEMATOCRIT (test code=HCT) 36.4 % 36.0-46.0 MEAN CELL VOLUME (test code=MCV) 89.4 fL 80-98 MEAN CELL HGB (test code=MCH) 28.5 picogram 27.0-33.0 MEAN CELL HGB CONCETRATION (test code=MCHC) 31.9 gram/dL 33.0-36.0 RED CELL DISTRIBUTION WIDTH (test code=RDW) 14.7 % 11.6-16.2 RED CELL DISTRIBUTION WIDTH SD (test code=RDW-SD) 47.5 fL 37.0-51.0 PLATELET COUNT (test code=PLT) 234 K/mm3 150-450 MEAN PLATELET VOLUME (test code=MPV) 8.8 fL 6.7-11.0 NEUTROPHIL % (test code=NT%) 75.0 % 39.0-69.0 IMMATURE GRANULOCYTE % (test code=IG%) 0.4 % 0.0-5.0 LYMPHOCYTE % (test code=LY%) 15.3 % 25.0-55.0 MONOCYTE % (test code=MO%) 8.9 % 0.0-10.0 EOSINOPHIL % (test code=EO%) 0.0 % 0.0-5.0 BASOPHIL % (test code=BA%) 0.4 % 0.0-1.0 NUCLEATED RBC % (test code=NRBC%) 0.0 % 0-0 NEUTROPHIL # (test code=NT#) 3.53 K/mm3 1.8-7.7 IMMATURE GRANULOCYTE # (test code=IG#) 0.02 x10 3/uL 0-0.03 LYMPHOCYTE # (test code=LY#) 0.72 K/mm3 1.0-5.0 MONOCYTE # (test code=MO#) 0.42 K/mm3 0-0.8 EOSINOPHIL # (test code=EO#) 0.00 K/mm3 0.0-0.5 BASOPHIL # (test code=BA#) 0.02 K/mm3 0.0-0.2 NUCLEATED RBC # (test code=NRBC#) 0.00 K/mm3 0.0-0.1 CBC W/AUTO [id number] 06:08:00* Test Item Value Reference Range Comments WHITE BLOOD CELL (test code=WBC) K/mm3 4.5-12.5 RED BLOOD CELL (test code=RBC) mill/mm3 3.7-5.2 HEMOGLOBIN (test code=HGB) 11.6 gram/dL 11.5-15.5 HEMATOCRIT (test code=HCT) 36.4 % 36.0-46.0 MEAN CELL VOLUME (test code=MCV) fL 80-98 MEAN CELL HGB (test code=MCH) picogram 27.0-33.0 MEAN CELL HGB CONCETRATION (test code=MCHC) gram/dL 33.0-36.0 RED CELL DISTRIBUTION WIDTH (test code=RDW) % 11.6-16.2 RED CELL DISTRIBUTION WIDTH SD (test code=RDW-SD) fL 37.0-51.0 PLATELET COUNT (test code=PLT) K/mm3 150-450 MEAN PLATELET VOLUME (test code=MPV) fL 6.7-11.0 NEUTROPHIL % (test code=NT%) % 39.0-69.0 IMMATURE GRANULOCYTE % (test code=IG%) % 0.0-5.0 LYMPHOCYTE % (test code=LY%) % 25.0-55.0 MONOCYTE % (test code=MO%) % 0.0-10.0 EOSINOPHIL % (test code=EO%) % 0.0-5.0 BASOPHIL % (test code=BA%) % 0.0-1.0 NEUTROPHIL # (test code=NT#) K/mm3 1.8-7.7 LYMPHOCYTE # (test code=LY#) K/mm3 1.0-5.0 MONOCYTE # (test code=MO#) K/mm3 0-0.8 EOSINOPHIL # (test code=EO#) K/mm3 0.0-0.5 BASOPHIL # (test code=BA#) K/mm3 0.0-0.2 - XR CHEST 2 [id number] 17:46:00 FAX: Ernesto Damico [phone] [place]: [address] St: ADM FAX: Aracelis Santiago MD [phone] Name: VIRGEN CACERSE [facility] : 1960 Age/S: 57/F [address] [facility] Unit #: [id number] Loc: V.2096 [place] [address] Phys: Aracelis Santiago MD Acct: [id number] Dis Date: Status: ADM IN PHONE #: [phone] Exam Date: 07/15/2018 1725 FAX #: [phone] Reason: fever EXAMS: CPT CODE: [id number] XR CHEST 2 V 48454 REASON FOR EXAM: fever Exam Order Date: 07/15/2018 12:00 AM Ordering Ashish: Aracelis Santiago MD PROCEDURE: - XR CHEST 2 V COMPARISON: 07/12/2018 FINDINGS: PA and lateral views of the chest show clear lungs without evidence of consolidation. No evidence of effusion. The heart size is minimally enlarged.. Pulmonary vasculatures are unremarkable. Total left shoulder arthroplasty with surgical manuel present IMPRESSION: Patchy atelectasis at the bases at 1746 Reported and signed by: Timothy Solano M.D. CC: Ernesto Ashley; Aracelis Santiago MD Technologist: MAE KEBEDE RT (R); JACOB ORDONEZ RT(R) Trnscrd Date/Time/By: 07/15/2018 (4168) : By: [email or web address] Orig Print D/T: S: 07/15/2018 (8559) PAGE 1 Signed Report - XR ABDOMEN [id number] 17:45:00 FAX: Ernesto Damico [phone] [place]: B St: ADM FAX: Aracelis Santiago MD [phone] Name: VIRGEN CACERES [facility] : 1960 Age/S: 57/F [address] [facility] Unit #: [id number] Loc: V.2095 [place] [address] Phys: Aracelis Santiago MD Acct: [id number] Dis Date: Status: ADM IN PHONE #: [phone] Exam Date: 07/15/2018 173 FAX #: [phone] Reason: abd pain, vomiting EXAMS: CPT CODE: [id number] XR ABDOMEN 2V [id number] REASON FOR EXAM: abd pain, vomiting EXAM ORDER DATE: 07/15/2018 4:22 PM Attending Ashish: Aracelis Santiago MD PROCEDURE: - XR ABDOMEN 2V COMPARISON: FINDINGS: 2 views of the abdomen obtained at 5:28 PM. Scattered fecal material seen in the colon. The small bowel is unremarkable. No evidence of organome dian or ascites. No evidence of free air IMPRESSION: Unremarkabl e abdomen. at 17 45 Reported and signed by: Timothy Solano M.D. CC: Ernesto Ashley; Aracelis Santiago MD Technologist: MAE KEBEDE RT (R); JACOB ORDONEZ RT(R) Trnscrd Date/Time/By: 0 07/15/2018 (1745) : By: MikeVTL Orig Print D/T: S: 07/15/2018 (6102) PAGE 1 Signed Report BASIC METABOLIC [id number] 17:07:00* Test Item Value Reference Range Comments SODIUM (test code=NA) 138 mmol/L 136-145 POTASSIUM (test code=K) 2.9 mmol/L 3.5-5.1 Results called to [id number] by [email or web address] 07/13/18 0517Critical results verified and read back by Nurse? Y CHLORIDE (test code=CL) 99.0 mmol/L 98-107 CARBON DIOXIDE (test code=CO2) 31.0 mmol/L 21-32 ANION GAP (test code=GAP) 10.9 10-20 GLUCOSE (test code=GLU) 166 mg/dL 74-106 BLOOD UREA NITROGEN (test code=BUN) 4 mg/dL 7-18 GLOMERULAR FILTRATION RATE (test code=GFR) > 60 mL/min >=60 Estimated GFR by using Modified MDRD formula.Chronic kidney disease is defined as either kidney damageor GFR <60 mL/min/1.73 m2 for >3 months. CREATININE (test code=CREAT) 0.60 mg/dL 0.55-1.02 Note change in reference range due to change in reagent. BUN/CREATININE RATIO (test code=BUN/CREA) 6.7 10-20 CALCIUM (test code=CA) 8.3 mg/dL 8.5-10.1 [id number] 17:07:00* Test Item Value Reference Range Comments MAGNESIUM (test code=MAG) 1.5 mg/dL 1.8-2.4 TOTAL IRON BINDING [id number] 17:07:00* Test Item Value Reference Range Comments TOTAL IRON BINDING CAPACITY (test code=TIBC) 163 mcg/dL 250-450 [id number] 17:07:00* Test Item Value Reference Range Comments TRANSFERRRIN (test code=TRANSF) 123 mg/dL 200-370 Performed At: [facility] [id number] Sanjai MD Ph:[phone] [id number] 17:07:00* Test Item Value Reference Range Comments FERRITIN (test code=RIANA) 423 ng/mL 8-388 CBC W/AUTO [id number] 10:03:00* Test Item Value Reference Range Comments WHITE BLOOD CELL (test code=WBC) 4.3 K/mm3 4.5-12.5 RED BLOOD CELL (test code=RBC) 4.35 mill/mm3 3.7-5.2 HEMOGLOBIN (test code=HGB) 12.7 gram/dL 11.5-15.5 HEMATOCRIT (test code=HCT) 39.2 % 36.0-46.0 MEAN CELL VOLUME (test code=MCV) 90.1 fL 80-98 MEAN CELL HGB (test code=MCH) 29.2 picogram 27.0-33.0 MEAN CELL HGB CONCETRATION (test code=MCHC) 32.4 gram/dL 33.0-36.0 RED CELL DISTRIBUTION WIDTH (test code=RDW) 14.7 % 11.6-16.2 RED CELL DISTRIBUTION WIDTH SD (test code=RDW-SD) 48.8 fL 37.0-51.0 PLATELET COUNT (test code=PLT) 275 K/mm3 150-450 RESULT VERIFIED BY REPEAT ANALYSIS MEAN PLATELET VOLUME (test code=MPV) 8.8 fL 6.7-11.0 NEUTROPHIL % (test code=NT%) 70.7 % 39.0-69.0 IMMATURE GRANULOCYTE % (test code=IG%) 2.1 % 0.0-5.0 LYMPHOCYTE % (test code=LY%) 17.9 % 25.0-55.0 MONOCYTE % (test code=MO%) 8.8 % 0.0-10.0 EOSINOPHIL % (test code=EO%) 0.0 % 0.0-5.0 BASOPHIL % (test code=BA%) 0.5 % 0.0-1.0 NUCLEATED RBC % (test code=NRBC%) 0.0 % 0-0 NEUTROPHIL # (test code=NT#) 3.05 K/mm3 1.8-7.7 IMMATURE GRANULOCYTE # (test code=IG#) 0.09 x10 3/uL 0-0.03 LYMPHOCYTE # (test code=LY#) 0.77 K/mm3 1.0-5.0 MONOCYTE # (test code=MO#) 0.38 K/mm3 0-0.8 EOSINOPHIL # (test code=EO#) 0.00 K/mm3 0.0-0.5 BASOPHIL # (test code=BA#) 0.02 K/mm3 0.0-0.2 NUCLEATED RBC # (test code=NRBC#) 0.00 K/mm3 0.0-0.1 BASIC METABOLIC [id number] 09:31:00* Test Item Value Reference Range Comments SODIUM (test code=NA) 135 mmol/L 136-145 POTASSIUM (test code=K) 3.6 mmol/L 3.5-5.1 CHLORIDE (test code=CL) 96.0 mmol/L 98-107 CARBON DIOXIDE (test code=CO2) 29.0 mmol/L 21-32 ANION GAP (test code=GAP) 13.6 10-20 GLUCOSE (test code=GLU) 102 mg/dL 74-106 BLOOD UREA NITROGEN (test code=BUN) 4 mg/dL 7-18 GLOMERULAR FILTRATION RATE (test code=GFR) > 60 mL/min >=60 Estimated GFR by using Modified MDRD formula.Chronic kidney disease is defined as either kidney damageor GFR <60 mL/min/1.73 m2 for >3 months. CREATININE (test code=CREAT) 0.60 mg/dL 0.55-1.02 Note change in reference range due to change in reagent. BUN/CREATININE RATIO (test code=BUN/CREA) 6.7 10-20 CALCIUM (test code=CA) 8.4 mg/dL 8.5-10.1 BASIC METABOLIC [id number] 09:18:00* Test Item Value Reference Range Comments SODIUM (test code=NA) 135 mmol/L 136-145 POTASSIUM (test code=K) 3.6 mmol/L 3.5-5.1 CHLORIDE (test code=CL) 96.0 mmol/L 98-107 CARBON DIOXIDE (test code=CO2) mmol/L 21-32 ANION GAP (test code=GAP) 10-20 GLUCOSE (test code=GLU) mg/dL 74-106 BLOOD UREA NITROGEN (test code=BUN) mg/dL 7-18 GLOMERULAR FILTRATION RATE (test code=GFR) mL/min >=60 CREATININE (test code=CREAT) mg/dL 0.55-1.02 BUN/CREATININE RATIO (test code=BUN/CREA) 10-20 CALCIUM (test code=CA) mg/dL 8.5-10.1 CBC W/AUTO [id number] 08:53:00* Test Item Value Reference Range Comments WHITE BLOOD CELL (test code=WBC) 3.6 K/mm3 4.5-12.5 RED BLOOD CELL (test code=RBC) 4.08 mill/mm3 3.7-5.2 HEMOGLOBIN (test code=HGB) 11.7 gram/dL 11.5-15.5 HEMATOCRIT (test code=HCT) 36.8 % 36.0-46.0 MEAN CELL VOLUME (test code=MCV) 90.2 fL 80-98 MEAN CELL HGB (test code=MCH) 28.7 picogram 27.0-33.0 MEAN CELL HGB CONCETRATION (test code=MCHC) 31.8 gram/dL 33.0-36.0 RED CELL DISTRIBUTION WIDTH (test code=RDW) 15.0 % 11.6-16.2 RED CELL DISTRIBUTION WIDTH SD (test code=RDW-SD) 49.4 fL 37.0-51.0 PLATELET COUNT (test code=PLT) 343 K/mm3 150-450 MEAN PLATELET VOLUME (test code=MPV) 8.7 fL 6.7-11.0 NEUTROPHIL % (test code=NT%) 74.1 % 39.0-69.0 IMMATURE GRANULOCYTE % (test code=IG%) 0.3 % 0.0-5.0 LYMPHOCYTE % (test code=LY%) 15.6 % 25.0-55.0 MONOCYTE % (test code=MO%) 8.6 % 0.0-10.0 EOSINOPHIL % (test code=EO%) 0.6 % 0.0-5.0 BASOPHIL % (test code=BA%) 0.8 % 0.0-1.0 NUCLEATED RBC % (test code=NRBC%) 0.0 % 0-0 NEUTROPHIL # (test code=NT#) 2.66 K/mm3 1.8-7.7 IMMATURE GRANULOCYTE # (test code=IG#) 0.01 x10 3/uL 0-0.03 LYMPHOCYTE # (test code=LY#) 0.56 K/mm3 1.0-5.0 MONOCYTE # (test code=MO#) 0.31 K/mm3 0-0.8 EOSINOPHIL # (test code=EO#) 0.02 K/mm3 0.0-0.5 BASOPHIL # (test code=BA#) 0.03 K/mm3 0.0-0.2 NUCLEATED RBC # (test code=NRBC#) 0.00 K/mm3 0.0-0.1 CBC W/AUTO [id number] 08:49:00* Test Item Value Reference Range Comments WHITE BLOOD CELL (test code=WBC) K/mm3 4.5-12.5 RED BLOOD CELL (test code=RBC) mill/mm3 3.7-5.2 HEMOGLOBIN (test code=HGB) 11.7 gram/dL 11.5-15.5 HEMATOCRIT (test code=HCT) 36.8 % 36.0-46.0 MEAN CELL VOLUME (test code=MCV) fL 80-98 MEAN CELL HGB (test code=MCH) picogram 27.0-33.0 MEAN CELL HGB CONCETRATION (test code=MCHC) gram/dL 33.0-36.0 RED CELL DISTRIBUTION WIDTH (test code=RDW) % 11.6-16.2 RED CELL DISTRIBUTION WIDTH SD (test code=RDW-SD) fL 37.0-51.0 PLATELET COUNT (test code=PLT) K/mm3 150-450 MEAN PLATELET VOLUME (test code=MPV) fL 6.7-11.0 NEUTROPHIL % (test code=NT%) % 39.0-69.0 IMMATURE GRANULOCYTE % (test code=IG%) % 0.0-5.0 LYMPHOCYTE % (test code=LY%) % 25.0-55.0 MONOCYTE % (test code=MO%) % 0.0-10.0 EOSINOPHIL % (test code=EO%) % 0.0-5.0 BASOPHIL % (test code=BA%) % 0.0-1.0 NEUTROPHIL # (test code=NT#) K/mm3 1.8-7.7 LYMPHOCYTE # (test code=LY#) K/mm3 1.0-5.0 MONOCYTE # (test code=MO#) K/mm3 0-0.8 EOSINOPHIL # (test code=EO#) K/mm3 0.0-0.5 BASOPHIL # (test code=BA#) K/mm3 0.0-0.2 [id number] 16:02:00* Test Item Value Reference Range Comments POTASSIUM (test code=K) 3.6 mmol/L 3.5-5.1 BASIC METABOLIC [id number] 05:19:00* Test Item Value Reference Range Comments SODIUM (test code=NA) 138 mmol/L 136-145 POTASSIUM (test code=K) 2.9 mmol/L 3.5-5.1 Results called to [id number] by V.[email or web address].AG1 07/13/18 0517Critical results verified and read back by Nurse? Y CHLORIDE (test code=CL) 99.0 mmol/L 98-107 CARBON DIOXIDE (test code=CO2) 31.0 mmol/L 21-32 ANION GAP (test code=GAP) 10.9 10-20 GLUCOSE (test code=GLU) 166 mg/dL 74-106 BLOOD UREA NITROGEN (test code=BUN) 4 mg/dL 7-18 GLOMERULAR FILTRATION RATE (test code=GFR) > 60 mL/min >=60 Estimated GFR by using Modified MDRD formula.Chronic kidney disease is defined as either kidney damageor GFR <60 mL/min/1.73 m2 for >3 months. CREATININE (test code=CREAT) 0.60 mg/dL 0.55-1.02 Note change in reference range due to change in reagent. BUN/CREATININE RATIO (test code=BUN/CREA) 6.7 10-20 CALCIUM (test code=CA) 8.3 mg/dL 8.5-10.1 [id number] 05:19:00* Test Item Value Reference Range Comments MAGNESIUM (test code=MAG) 1.5 mg/dL 1.8-2.4 TOTAL IRON BINDING [id number] 05:19:00* Test Item Value Reference Range Comments TOTAL IRON BINDING CAPACITY (test code=TIBC) 163 mcg/dL 250-450 [id number] 05:19:00* Test Item Value Reference Range Comments TRANSFERRRIN (test code=TRANSF) mg/dL 200-370 [id number] 05:19:00* Test Item Value Reference Range Comments FERRITIN (test code=RIANA) 423 ng/mL 8-388 CBC W/AUTO [id number] 04:59:00* Test Item Value Reference Range Comments WHITE BLOOD CELL (test code=WBC) 4.3 K/mm3 4.5-12.5 RED BLOOD CELL (test code=RBC) 3.77 mill/mm3 3.7-5.2 HEMOGLOBIN (test code=HGB) 10.8 gram/dL 11.5-15.5 HEMATOCRIT (test code=HCT) 34.4 % 36.0-46.0 MEAN CELL VOLUME (test code=MCV) 91.2 fL 80-98 MEAN CELL HGB (test code=MCH) 28.6 picogram 27.0-33.0 MEAN CELL HGB CONCETRATION (test code=MCHC) 31.4 gram/dL 33.0-36.0 RED CELL DISTRIBUTION WIDTH (test code=RDW) 15.5 % 11.6-16.2 RED CELL DISTRIBUTION WIDTH SD (test code=RDW-SD) 51.3 fL 37.0-51.0 PLATELET COUNT (test code=PLT) 353 K/mm3 150-450 MEAN PLATELET VOLUME (test code=MPV) 9.1 fL 6.7-11.0 NEUTROPHIL % (test code=NT%) 73.3 % 39.0-69.0 IMMATURE GRANULOCYTE % (test code=IG%) 0.5 % 0.0-5.0 LYMPHOCYTE % (test code=LY%) 15.3 % 25.0-55.0 MONOCYTE % (test code=MO%) 9.5 % 0.0-10.0 EOSINOPHIL % (test code=EO%) 0.7 % 0.0-5.0 BASOPHIL % (test code=BA%) 0.7 % 0.0-1.0 NUCLEATED RBC % (test code=NRBC%) 0.0 % 0-0 NEUTROPHIL # (test code=NT#) 3.16 K/mm3 1.8-7.7 IMMATURE GRANULOCYTE # (test code=IG#) 0.02 x10 3/uL 0-0.03 LYMPHOCYTE # (test code=LY#) 0.66 K/mm3 1.0-5.0 MONOCYTE # (test code=MO#) 0.41 K/mm3 0-0.8 EOSINOPHIL # (test code=EO#) 0.03 K/mm3 0.0-0.5 BASOPHIL # (test code=BA#) 0.03 K/mm3 0.0-0.2 NUCLEATED RBC # (test code=NRBC#) 0.00 K/mm3 0.0-0.1 [id number] 15:32:00* Test Item Value Reference Range Comments MAGNESIUM (test code=MAG) 1.5 mg/dL 1.8-2.4 PROTHROMBIN [id number] 13:17:00* Test Item Value Reference Range Comments PROTHROMBIN TIME PATIENT (test code=PTP) 12.5 seconds 9.0-14.0 INTERNATIONAL NORMAL RATIO (test code=INR) 1.1 0.8-1.2 The therapeutic range for oral anticoagulant therapy formost indications is an international normalized ratio (INR)of between 2.0 and 3.0. The recommended therapeutic INRrange for various clinical situations is listed below: Clinical Situation INR range Pulmonary e mbolism treatment (2.0-3.0)Venous thrombosis treatmentVenous thrombosis prophylaxis (high risk surgery)Prevention of systemic embolism from: Acute myocardial infarction Valvular heart disease Atrial fibrillation Mechanical prosthetic heart valves (2.5-3.5) IS PATIENT ON ANTICOAGULANTS? NBASIC METABOLIC [id number] 13:10:00* Test Item Value Reference Range Comments SODIUM (test code=NA) 142 mmol/L 136-145 POTASSIUM (test code=K) 2.8 mmol/L 3.5-5.1 Results called to [id number] by VALENTIN 07/12/18 1309Critical results verified and read back by Nurse? Y CHLORIDE (test code=CL) 101.0 mmol/L 98-107 CARBON DIOXIDE (test code=CO2) 34.0 mmol/L 21-32 ANION GAP (test code=GAP) 9.8 10-20 GLUCOSE (test code=GLU) 96 mg/dL 74-106 BLOOD UREA NITROGEN (test code=BUN) 9 mg/dL 7-18 GLOMERULAR FILTRATION RATE (test code=GFR) > 60 mL/min >=60 Estimated GFR by using Modified MDRD formula.Chronic kidney disease is defined as either kidney damageor GFR <60 mL/min/1.73 m2 for >3 months. CREATININE (test code=CREAT) 0.60 mg/dL 0.55-1.02 Note change in reference range due to change in reagent. BUN/CREATININE RATIO (test code=BUN/CREA) 15.0 10-20 CALCIUM (test code=CA) 7.9 mg/dL 8.5-10.1 HEPATIC FUNCTION [id number] 13:10:00* Test Item Value Reference Range Comments TOTAL PROTEIN (test code=PROT) 5.9 gram/dL 6.4-8.2 ALBUMIN (test code=ALB) 2.7 g/dL 3.4-5.0 GLOBULIN (test code=GLOB) 3.2 gram/dL 2.7-4.2 ALBUMIN/GLOBULIN RATIO (test code=A/G) 0.8 0.75-1.50 BILIRUBIN TOTAL (test code=BILT) 0.40 mg/dL 0.0-1.0 BILIRUBIN DIRECT (test code=BILD) 0.12 mg/dL 0.0-0.20 SGOT/AST (test code=AST) 19 IUnit/L 15-37 SGPT/ALT (test code=ALT) 9 IUnit/L 12-78 ALKALINE PHOSPHATASE TOTAL (test code=ALKP) 122 IUnit/L 45-117 Note change in reference range due to change in reagent. [id number] 13:10:00* Test Item Value Reference Range Comments LIPASE (test code=LIP) 138 U/L 73.0-393.0 - XR CHEST 1 [id number] 12:55:00 FAX: Ric Isabel DO [place]: B St: REG Name: VIRGEN LOBO [facility] : [birth year] Age/S: 57/F [address] [facility] Unit #: [id number] Loc: [place] [address] Phys: Ric Isabel DO Acct: [id number] Dis Date: Status: REG ER PHONE #: [phone] Exam Date: 07/12/2018 1230 FAX #: [phone] Reason: Abdominal Pain EXAMS: CPT CODE: [id number] XR CHEST 1 V 56298 HISTORY: Abdominal pain. COMPARISON: None available. No acute infiltrates, effusion or congestion is noted. Left battery pack within the lead extending into the neck. Left shoulder prosthesis. Round radiopaque foreign body overlaps wi th the right hilum. The cardiac and mediastinal silhouette a re within normal limits. IMPRESSION: No acut e infiltrates, effusion or congestion. at 5402 Reported and signed by: Jefry Barrett M.D. CC: Ric Isabel DO Technologist: RT ELAN(R) Gema Date/Time/By: 07/12/2018 (0245) : By: [email or web address] Orig Print D/T: S: 07/12/2018 (6217) PAGE 1 Signed Report CBC W/O [id number] 12:48:00* Test Item Value Reference Range Comments WHITE BLOOD CELL (test code=WBC) 3.3 K/mm3 4.5-12.5 RED BLOOD CELL (test code=RBC) 2.59 mill/mm3 3.7-5.2 HEMOGLOBIN (test code=HGB) 7.6 gram/dL 11.5-15.5 HEMATOCRIT (test code=HCT) 24.6 % 36.0-46.0 MEAN CELL VOLUME (test code=MCV) 95.0 fL 80-98 MEAN CELL HGB (test code=MCH) 29.3 picogram 27.0-33.0 MEAN CELL HGB CONCETRATION (test code=MCHC) 30.9 gram/dL 33.0-36.0 RED CELL DISTRIBUTION WIDTH (test code=RDW) 15.6 % 11.6-16.2 PLATELET COUNT (test code=PLT) 382 K/mm3 150-450 MEAN PLATELET VOLUME (test code=MPV) 8.7 fL 6.7-11.0 CHEST SINGLE (PORTABLE) [place] [address] Patient Name: VIRGEN CACERES MR #: [id number] : 1960 Age/Sex: 56/F Req #: [id number] Adm Physician: Ordered by: TRUONG SANTIAGO LINING CLOSER Report #: [id number] Location: ER Room/Bed: Procedure: [id number] DX/CHEST SINGLE (PORTABLE ) Exam Date: 09/07/17 Exam Time: 2019 TATUS: Signed EXAMINATION: CHEST SINGLE (PORTABLE) INDICATION: Dizz iness. Low blood pressure. COMPARISON: None FINDINGS: TUBES and LINES: None. Battery pack projected on the left hemithorax with lead ext ending into the left hemithorax, with distal portion not included. LUNGS: Lungs are well inflated. Lungs are clear. There is no evidence of pneumonia or pulmonary edema. PLEURA: No pleural effusion or pneumothorax. HEA RT AND MEDIASTINUM: The cardiomediastinal silhouette is unremarkable. BONES AND SOFT TISSUES: No acute osseous lesion. Soft tissues are unremarkab le. UPPER ABDOMEN: No free air under the diaphragm. IMPRESSION: No acute thoracic abnormality. Signed by: Dr. Paco Erickson M.D. on 09/07/2017 8:44 PM Dictated By: YVONNE ERICKSON MD, MD 43 Transcribed By: MARGOTH on 2043 COPY TO: TRUONG SANTIAGO NP
[2018-11-09] MEDS: METOCLOPRAMIDE HCL 10 MG/2ML VIAL IV ONE (10:37)
[2018-11-09] MEDS: FAMOTIDINE 20 MG/2 ML VIAL IV ONE (10:37)
[2018-11-09] MEDS: SODIUM CHLORIDE 0.9% 1000ML 1,000 ML IV ONE (10:37)
[2018-11-09] MEDS: MAGNESIUM/ALUMINUM/SIMETHICONE 30 ML UDC PO ONE (10:37)
--- NOTE | 2018-11-09 10:40 | Diagnostic Imaging Report ---
Abdomen, 2 views. History: Nausea and vomiting for one month. Findings: Air is scattered throughout nondilated small and large bowel. There are no air-fluid levels. There is no evidence of free air. There are no masses or abnormal calcifications. Surgical clips are noted in the right upper quadrant. The osseous structures are intact. IMPRESSION: Nonobstructive bowel gas pattern. Signed by: Neri Flores on 11/09/2018 10:36 AM
[2018-11-09 10:43] LABS: BASOPHILS % 0.5 % (0.0-1.0); EOSINOPHILS # (AUTO) 0.1 (0.0-0.4); EOSINOPHILS % 1.3 % (0.0-6.0); HEMATOCRIT 35.6 % (34.2-44.1); HEMOGLOBIN 11.3 g/dL (12.0-16.0); LYMPHOCYTES % 17.2 % (18.0-39.1); MEAN CORPUSCULAR HEMOGLOBIN 29.5 pg (28-32); MEAN CORPUSCULAR HGB CONC 31.7 g/dL (31-35); MONOCYTES # (AUTO) 0.2 (0.2-0.8); NEUTROPHILS # (AUTO) 4.2 (2.1-6.9); NEUTROPHILS % 76.5 % (38.7-80.0); PLATELET COUNT 323 x10e3/uL (140-360); RED BLOOD COUNT 3.83 x10e6/uL (3.6-5.1); RED CELL DISTRIBUTION WIDTH 12.8 % (11.7-14.4)
[2018-11-09 11:06] LABS: ALANINE AMINOTRANSFERASE 7 IU/L (0-55); ALBUMIN 3.5 g/dL (3.5-5.0); ALBUMIN/GLOBULIN RATIO 0.8 (0.8-2.0); ALKALINE PHOSPHATASE 98 IU/L (40-150); BLOOD UREA NITROGEN 15 mg/dL (7-26); BUN/CREATININE RATIO 21 (6-25); CALCIUM 9.6 mg/dL (8.4-10.2); CARBON DIOXIDE 28 mmol/L (22-29); CHLORIDE 102 mmol/L (98-107); CREATININE, SERUM 0.71 mg/dL (0.57-1.11); EST GLOMERULAR FILTRATION RATE > 60 ML/MIN (60-); GLUCOSE 116 mg/dL (74-118); SODIUM 141 mmol/L (136-145)
[2018-11-09 11:07] LABS: BILIRUBIN,URINE NEGATIVE (NEGATIVE); CLARITY,URINE CLEAR (CLEAR); COLOR,URINE YELLOW (YELLOW); KETONES,URINE NEGATIVE (NEGATIVE); LEUKOCYTE ESTERASE ,URINE TRACE (NEGATIVE); NITRITE,URINE POSITIVE (NEGATIVE); PROTEIN,URINE DIPSTICK NEGATIVE (NEGATIVE); URINE UROBILINOGEN 1 mg/dL (0.2 - 1)
[2018-11-09 11:34] LABS: BACTERIA,URINE MODERATE /HPF; EPITHELIAL CELLS,URINE FEW /LPF; WBC,URINE (MAN) 21-50 /HPF (0-5)
[2018-11-09] MEDS: CEFTRIAXONE SOD 1 GM/NS 50 ML 50 ML IV ONE (11:44)
[2018-11-09 12:16] VITALS: BP 106/60
== END 2018-11-09 12:35 | disposition home or self-care (01) ==
LOC: ER 09:18
DX: N39.0 Urinary tract infection, site not specified (principal); E86.0 Dehydration; R11.10 Vomiting, unspecified; Z99.3 Dependence on wheelchair
CPT/HCPCS: 36415; 74019; 80053; 81001; 83690; 85025; 99284; J0696; J2765; J7030